=== PATIENT | female | born 1985 | race African-American/Black ===

== ENCOUNTER 2019-08-19 08:18 | Inpatient (IN) | payer BC, MEDICAID, SELFPAY ==
[2019-08-19] VITALS (11 sets, daily range): BP systolic 110–148; BP diastolic 46–93; PULSE 62–87; RESP 12–24; TEMP 36.3–36.9; O2SAT 96–100; BMI 37.0
--- NOTE | ~2019-08-19 | XR_ITS ---
EXAMINATION: XR cholangiogram surg 1st inj DATE: 08/22/2019 15:17 INDICATION: Intraoperative evaluation during laparoscopic cholecystectomy TECHNIQUE: Multiple fluoroscopic images of the right upper quadrant were obtained during intraoperati ve cholangiography. The amount of fluoroscopy time used during this procedure was 0.5 minutes. COMPARISON: None. FINDINGS: Cannulation of the cystic duct demonstrates filling of a normal appearing common bile duct which tapers smoothly distally with no intraluminal filling defects or stricture. Contrast extends i nto the duodenum and central intrahepatic biliary tree which also appears normal. IMPRESSION: 1. No filling defects or strictures within the common bile duct or contrast opacified central biliary tree. Reviewed, dictated and finalized at location A. DRIVER IMPRESSION: 1. No filling defects or strictures within the common bile duct or contrast opa cified central biliary tree.
--- NOTE | ~2019-08-19 | US_ITS ---
EXAMINATION: US right upper quadrant EXAM DATE: 08/19/2019 16:43 INDICATION: Back pain. Abnormal CT scan. TECHNIQUE: Multiple grayscale and Doppler images of the abdomen right upper quadrant were obtained (b y a technologist who performed the scan) and subsequently reviewed. There is no prior study for dax kraft. FINDINGS: The pancreatic head and body are normal in appearance. The pancreatic tail is not visualized. The l iver has normal echogenicity and contour. There are no focal liver lesions identified. There is no evidence of intrahepatic biliary duct dilation. Portal venous flow was seen in the hepatopedal, nor mal direction and has normal Doppler waveform. No right-sided hydronephrosis. Common bile duct measures 3 mm, which is normal. Gallbladder wall is either severely edematous up to 1.5 cm, where there is rather symmetric pericholecystic fluid (there was perihepatic and pericholecys tic fluid on CT scan same date). There are multiple layering gallstones. Gallbladder lumen is only mi ldly distended. Technologist reports patient demonstrated maximal tenderness overlying the gallbladde r. IMPRESSION: Cholelithiasis. Severely edematous gallbladder wall versus pericholecystic fluid. Sonogra phic Nagel's sign demonstrated. Appearance is suspicious for acute cholecystitis but given the other findings on CT scan difficult to exclude that gallbladder findings are reactive. Gallbladder lumen o nly demonstrating mild distention. Consider HIDA scan. Reviewed, dictated and finalized at location A. BIT BUILDER IMPRESSION: Cholelithiasis. Severely edematous gallbladder wall versus perichol ecystic fluid. Sonographic Nagel's sign demonstrated. Appearance is suspicious for acute cholecystitis but given the other findings on CT scan difficult to e xclude that gallbladder findings are reactive. Gallbladder lumen only demonstra ting mild distention. Consider HIDA scan.
--- NOTE | ~2019-08-19 | XR_ITS ---
EXAMINATION: XR chest 1V portable EXAM DATE: 08/19/2019 14:33 INDICATION: Infiltrate. Chest pain. TECHNIQUE: Frontal and lateral projections of the chest obtained and reviewed. Comparison is made to prior examination from 11/27/2014. Correlation was made with CT abdomen pelvis same date. FINDINGS: The small right lower lobe groundglass opacities are not appreciated by this modality, cou ld be edema or pneumonia. Heart is larger and more rounded in shape than on previous examination, mil d cardiomegaly of uncertain etiology. Given patient's young age, could be cardiomyopathy. No pericard ial effusion on the CT. There is no pneumothorax suspected. There are no pleural effusions. Mild thor acic dextroscoliosis. IMPRESSION: 1. Development of cardiomegaly. Possible CHF or cardiomyopathy. 2. Faint right basilar edema or pneumonia seen on CT not well appreciated on x-ray. Reviewed, dictated and finalized at location A. I[employer]AN [employer]ICE MARKET MANAGER IMPRESSION: 1. Development of cardiomegaly. Possible CHF or cardiomyopathy. 2. Faint right basilar edema or pneumonia seen on CT not well appreciated on x -ray.
--- NOTE | ~2019-08-19 | CT_ITS ---
EXAMINATION: CT abdomen pelvis w con EXAM DATE: 08/19/2019 14:05 INDICATION: Abdominal pain, back pain. Nausea and vomiting. TECHNIQUE: Spiral CT of the abdomen and pelvis was performed following intravenous injection of 100 m L Omnipaque 350. Axial, coronal and sagittal images were reviewed. The dose-length product (DLP) fo r this examination was 549.34 mGy-cm. The exposure was tailored according to patient size (auto mA e xposure control), and iterative reconstruction (ASIR) was used as additional dose reduction technique . Comparison is made to prior examination from 08/16/2016. FINDINGS: There is moderate generalized body wall and mesenteric fat stranding. Small to moderate mireya unt of perihepatic ascites, including fluid surrounding the gallbladder and extending into the peripo rtal region, periportal edema. Poorly calcified gallstones. Cholecystitis not excludable. Spleen, ad renal glands, pancreas are unremarkable. Portal and splenic veins are patent. Kidneys enhance symme trically. There is no hydronephrosis. Uterus is anteverted with IUD inside, but somewhat eccentric ally located within the myometrium. The bladder is unremarkable. There is no retroperitoneal or pel otis lymphadenopathy. Right lower quadrant 3 cm cystic region probably the right ovary. Appendix not positively identified. There are surgical changes from intact gastric bypass surgery. There is expected amount of colonic stool. No free intraperitoneal gas. The heart is normal in size. There are no pericardial or pl eural effusions. There is faint right lower lobe groundglass tree-in-bud airspace disease which coul d be ammonia. There are no osteoblastic or osteolytic lesions identified. IMPRESSION: 1. Right lower lobe groundglass nodular opacities suspicious for developing pneumonia. 2. Small to moderate amount of perihepatic, pericholecystic and periportal fluid. Generalized mesent antonio, body wall edema. 3. Cholelithiasis, can't determine gallbladder wall thickness. If acute cholecystitis clinical possi bility consider ultrasound. 4. IUD eccentrically located within myometrium, could be partly out of the endometrial cavity. Reviewed, dictated and finalized at location A. YARN SORTER IMPRESSION: 1. Right lower lobe groundglass nodular opacities suspicious for developing pn eumonia. 2. Small to moderate amount of perihepatic, pericholecystic and periportal flu id. Generalized mesenteric, body wall edema. 3. Cholelithiasis, can't determine gallbladder wall thickness. If acute cholec ystitis clinical possibility consider ultrasound. 4. IUD eccentrically located within myometrium, could be partly out of the end ometrial cavity.
--- NOTE | ~2019-08-19 | MR_ITS ---
EXAMINATION: MR MRCP wo/w con/w 3D wo ind DATE: 08/21/2019 12:21 INDICATION: Cholelithiasis with rising bilirubin TECHNIQUE: Magnetic resonance imaging (MRI) of the abdomen was performed without and with 15 mL Multi joel intravenous contrast. Sequences included coronal T2-weighted SS-FSE, coronal T2-weighted FS SS- FSE, coronal T2-weighted FS FIESTA, axial T2-weighted FS FIESTA, axial T2-weighted FIESTA, sagittal T 2-weighted SS-FSE, axial T1-weighted dual-echo FSPGR, axial T2-weighted SS-FSE, axial T1-weighted LAV A, axial T2-weighted STIR FSE. Thick-slab T2-weighted FRFSE-XL images were obtained for magnetic reso nance cholangiopancreatography (MRCP). Rotating maximum intensity projection 3-D reconstructions of t he volumetric data were created by the technologist. Postcontrast sequences included a time course of axial T1-weighted LAVA. COMPARISON: Ultrasound and CT dated 08/19/1990 FINDINGS: ABDOMEN MRI: Heart size is normal. No pericardial or pleural effusion. Magnetic susceptibility artifact associated with suture lines in the epigastric region and along a loop of small bowel in the anterior midabdome n likely related to prior gastric bypass procedure. Mild periportal edema in the otherwise normal-sammie earing liver. Numerous small low signal intensity gallstones layering in the dependent aspect of the gallbladder. Gallbladder is dilated to 4.8 x 4.5 cm with thickened edematous-appearing wall consisten t with acute cholecystitis. Spleen, pancreas, bilateral adrenal glands and kidneys are normal. No bow el obstruction. No pathologically enlarged abdominal lymphadenopathy. There is persistent soft tissu e edema throughout the body wall, mesentery and retroperitoneum. Trace amount of perihepatic ascites. Normal bone marrow signal throughout. ABDOMEN MRCP: There is some motion artifact on the MRCP images however the sagittal and coronal T2-weighted SSFSE i mages are excellent quality which aids and interpretation. No intrahepatic biliary ductal dilation. T he common bile duct is also normal in caliber measuring up to 3 mm in maximal diameter. No definitive intraluminal choledocholithiasis appreciated. No dilation of the main pancreatic duct. IMPRESSION: 1. Cholelithiasis and likely acute cholecystitis with dilation of the gallbladder and diffuse edemato us gallbladder wall thickening. 2. No evident choledocholithiasis with no intra or extrahepatic biliary ductal dilation. Reviewed, dictated and finalized at location A. FITTER FIRE SPRINKLER SYSTEMS IMPRESSION: 1. Cholelithiasis and likely acute cholecystitis with dilation of the gallbladd er and diffuse edematous gallbladder wall thickening. 2. No evident choledocholithiasis with no intra or extrahepatic biliary ductal dilation.
--- NOTE | 2019-08-19 08:49 | ECG_ITS ---
Measurements Intervals [place] Rate: 67 P: 23 OH: 236 QRS: 83 QRSD: 152 T: 45 QT: 434 QTc: 461 Interpretive Statements SINUS RHYTHM WITH FIRST DEGREE AV BLOCK RIGHT BUNDLE BRANCH BLOCK BASELINE ARTIFACT- I, II, III, AVR, AVL, AVF ABNORMAL ECG Electronically Signed On 08-19-2019 9:03:21 NETWORK CONTROL OPERATORS SUPERVISOR by Franklin Murrell D.O.
[2019-08-19 09:05] LABS: Basophils Percent Auto 0.5 % (0.2-1.2); Eosinophils Percent Auto 0.5 % (0-4.4); Hematocrit 33.4 % (37.0-47.0); Hemoglobin 10.5 g/dL (12.0-15.0); Immature Granulocyte Absolute 0.02 K/mm3 (0.00-0.031); Immature Granulocyte Percent A 0.3 % (0-0.5); Lymphocytes Absolute Auto 1.78 K/mm3 (0.9-3.2); Lymphocytes Percent Auto 27.4 % (18.3-44.2); Mean Corpuscular HGB Conc 31.4 g/dl (32-36); Mean Corpuscular Hemoglobin 26.5 pg (26-34); Mean Corpuscular Volume 84.3 fl (80-100); Monocytes Absolute Auto 0.5 K/mm3 (0.1-0.6); Monocytes Percent Auto 6.9 % (2.6-8.5); Neutrophils Absolute Auto 4.2 K/mm3 (1.3-6.7); Neutrophils Percent Auto 64.4 % (45.5-73.1); Platelet Count Result 335 k/mm3 (150-375); Red Blood Count 3.96 M/mm3 (4.2-5.4); Red Cell Distribution Width 18.2 % (11.5-14.5); White Blood Count 6.5 K/mm3 (4.5-10.0)
--- NOTE | 2019-08-19 12:12 | ED_ITS ---
I attest that this documentation has been prepared under the direction and in t he presence of Nikita Harris DO. Drake, Brett A., Scribe 08/19/19;12:13 HPI - General Adult General Chief complaint: Unspecified Stated complaint: Back Pain Time Seen by Provider: 08/19/19 12:04 Related Data Allergies Allergy/AdvReac Type Severity Reaction Status Date / Time YAZMIN Inhibitors Allergy Unknown Swelling, Verified 12/28/17 19:38 FACE AND THROAT Course Vital Signs Vital signs: Vital Signs Temperature 36.3 C L 08/19/19 08:34 Pulse Rate 63 08/19/19 08:34 Respiratory Rate 18 08/19/19 08:34 Blood Pressure 139/93 H 08/19/19 08:34 Pulse Oximetry 100 08/19/19 08:34 Temperature 36.5 C 08/19/19 11:36 Pulse Rate 74 08/19/19 11:36 Respiratory Rate 18 08/19/19 11:36 Blood Pressure 126/87 08/19/19 11:36 Pulse Oximetry 100 08/19/19 11:36 Medical Decision Making Vital Signs Vital Signs: Vital Signs Temperature 36.3 C L 08/19/19 08:34 Pulse Rate 63 08/19/19 08:34 Respiratory Rate 18 08/19/19 08:34 Blood Pressure 139/93 H 08/19/19 08:34 Pulse Oximetry 100 08/19/19 08:34 Temperature 36.5 C 08/19/19 11:36 Pulse Rate 74 08/19/19 11:36 Respiratory Rate 18 08/19/19 11:36 Blood Pressure 126/87 08/19/19 11:36 Pulse Oximetry 100 08/19/19 11:36 Lab Data Result diagrams: 08/19/19 08:42 08/19/19 08:42 Labs: Lab Results 08/19/19 08/19/19 Range/Units 08:42 08:42 WBC 6.5 (4.5-10.0) K/mm3 RBC 3.96 L (4.2-5.4) M/mm3 Hgb 10.5 L (12.0-15.0) g/dL Hct 33.4 L (37.0-47.0) % MCV 84.3 (80-100) fl MCH 26.5 (26-34) pg MCHC 31.4 L (32-36) g/dl RDW 18.2 H (11.5-14.5) % Plt Count 335 (150-375) k/mm3 MPV 9.0 (7.4-10.4) fl Immature Gran % (Auto) 0.3 (0-0.5) % Neut % (Auto) 64.4 (45.5-73.1) % Lymph % (Auto) 27.4 (18.3-44.2) % [place] % (Auto) 6.9 (2.6-8.5) % Eos % (Auto) 0.5 (0-4.4) % Baso % (Auto) 0.5 (0.2-1.2) % Lymph # (Auto) 1.78 (0.9-3.2) K/mm3 [place] # (Auto) 0.5 (0.1-0.6) K/mm3 Eos # (Auto) 0.0 (0-0.3) K/mm3 Baso # (Auto) 0.0 (0.0-0.1) K/mm3 Abs Immat Gran (auto) 0.02 (0.00-0.031) K/mm3 Absolute Neuts (auto) 4.2 (1.3-6.7) K/mm3 Absolute Nucleated RBC 0.0 (0.0-0.012) K/mm3 Nucleated RBC % 0.0 (0.0-0.2) % Sodium Pending Potassium Pending Chloride Pending Carbon Dioxide Pending BUN Pending Creatinine Pending Estim Creat Clear Calc Pending Estimated GFR Pending Glucose Pending Calcium Pending Total Bilirubin Pending AST Pending ALT Pending Alkaline Phosphatase Pending Total Protein Pe
--- NOTE | 2019-08-19 12:33 | PC.NURSE ---
Attempted to start PIV in L hand of pt. Able to gain access and draw blood without issue. When attempting to advance catheter pt began to scream and state take it out . IV catheter removed. Pt requesting other RN attempt for PIV access at this time.
[2019-08-19 12:42] LABS: Add Urine Microscopic? YES; Appearance Urine Clear (Clear); Bacteria Urine Trace /hpf; Bilirubin Urine 2+ (Negative); Blood Urine Negative (Negative); Color Urine Amber (Yellow); Glucose Urine UA Negative (Negative); Ketones Urine Trace mg/dL (Negative); Leukocyte Esterase Ur Negative LEU/UL (Negative); Mucus Urine Moderate /lpf; Nitrate Urine Negative (Negative); Protein Urine 2+ mg/dL (Negative); RBC Urine 0-2 /hpf (0-2); Squamous Epithelial Cell Urine Few /hpf (Few)
[2019-08-19 12:49] LABS: Specific Grav Ur 1.035 (1.001-1.035)
[2019-08-19 12:57] LABS: Alanine Aminotransferase 363 U/L (4-35); Albumin Level 4.1 g/dL (3.5-5.1); Alkaline Phosphatase 121 U/L (38-126); Bilirubin,Total 2.2 mg/dL (0.2-1.3); Blood Urea Nitrogen 14 mg/dL (7-17); Carbon Dioxide 24 mmol/L (22-30); Chloride 100 mmol/L (98-107); Estimated CRCL calculation 146 ml/min; Estimated Glomerular Filt Rate > 60; Glucose 145 mg/dL (65-105); Lipase 42 U/L (23-300); Potassium 3.7 mmol/L (3.4-5.0); Sodium 135 mmol/L (137-145)
[2019-08-19 13:03] LABS: Aspartate Amino Transferase 890 U/L (14-36)
--- NOTE | 2019-08-19 13:45 | ED.ABDPAIN ---
HPI - Abdominal Pain General Chief Complaint: Unspecified Stated Complaint: Back Pain Time Seen by Provider: 08/19/19 12:04 Source: patient and RN notes reviewed Mode of arrival: ambulatory Limitations: no limitations History of Present Illness HPI narrative: Pt is a 33 y/o female with a Hx of gastric bypass, who presents to the ED with c/o LUQ pain starting around 4 AM this morning. According to the nurse, the pt's pain radiates into her back. She notes that she has had nausea and vomiting since her pain began. Pt also reports chest pain, but denies any diarrhea, fever, or chills. She notes that she hasn't taken any pain medications for her symptoms. Pt denies any chance of being . MD elicited complaint: abdominal pain Pertinent past history: other (gastric bypass) Onset (ago): hour(s) (8) Location: LUQ Radiation: back Associated symptoms: nausea, vomiting and other (chest pain) Related Data Allergies Allergy/AdvReac Type Severity Reaction Status Date / Time YAZMIN Inhibitors Allergy Unknown Swelling, Verified 12/28/17 19:38 FACE AND THROAT Review of Systems Review of Systems: All systems reviewed & are unremarkable except as noted in HPI and below Constitutional: Constitutional: Denies chills and Denies fever(s) Cardiovascular: Cardiovascular: Reports chest pain Gastrointestinal: Gastrointestinal: Reports abdominal pain (LUQ pain radiating into back), Denies diarrhea, Reports nausea and Reports vomiting PMFSH Past Medical History Medical History (Updated 08/19/19 @ 18:34 by Nikita Harris DO) Acute renal failure resolved Asthma CHF (congestive heart failure) Peptic ulcer Sleep apnea uses CPAP Surgical History Surgical History (Updated 08/19/19 @ 13:55 by Oniel Frederick) Hx of section Hx of gastric bypass Hx of tonsillectomy Social History Social History (Updated 08/19/19 @ 13:55 by Oniel Frederick) Smoking status: Never smoker Gender identity (if verbalized by the patient): Female Comments PCP is CECILY Sheppard. Exam Narrative: Exam Narrative: APPEARANCE: No acute distress, nontoxic, resting in bed HEENT: Normocephalic, atraumatic, OMM RESPIRATORY: No respiratory distress, clear to auscultation bilaterally with no rhonchi wheezing or rales CARDIOVASCULAR: RRR s murmur ABDOMINAL: Soft, nondistended, tender palpation epigastric, right upper quadrant left upper quadrant, no tenderness in right lower quadrant left lower quadrant, no rebound or guarding MUSCULOSKELETAl: Moves all extremities. No clubbing, cyanosis or edema. NEURO: Awake and alert. Following commands, speech normal, no focal deficits SKIN:: Warm, dry. Normal Color PSYCHIATRIC: Normal affect/mood Course Course Emergency Course: Discussed with patient and family results of workup and diagnosis. Discussed need for admission. Patient and family understand and agree to current treatment plan Consultations Consultation #1: Discussed case with PA to [facility]. Accepts admission. Date: 08/19/19 Time: 15:49 Consultation #2: Discussed case with General Surgeon, Dr. Parikh. Agrees with consult. Date: 08/19/19 Time: 18:20 Vital Signs Vital signs: Vital Signs Temperature 97.4 F L 08/19/19 08:34 Pulse Rate 63 08/19/19 08:34 Respiratory Rate 18 08/19/19 08:34 Blood Pressure 139/93 H 08/19/19 08:34 Pulse Oximetry 100 08/19/19 08:34 Temperature 98.0 F 08/19/19 12:12 Pulse Rate 62 08/19/19 14:37 Respiratory Rate 22 H 08/19/19 12:16 Blood Pressure 110/46 L 08/19/19 17:49 Pulse Oximetry 100 08/19/19 17:49 MDM - Abdominal Pain Lab Data Result diagrams: 08/19/19 08:42 08/19/19 12:30 Labs: Lab Results 08/19/19 08/19/19 08/19/19 Range/Units 08:42 12:29 12:30 WBC 6.5 (4.5-10.0) K/mm3 RBC 3.96 L (4.2-5.4) M/mm3 Hgb 10.5 L (12.0-15.0) g/dL Hct 33.4 L (37.0-47.0) % MCV 84.3 (80-100) fl MCH 26.5 (
[2019-08-19] MEDS: KETOROLAC 30 MG/ML VIAL (*BKC) IV PUSH (14:11)
[2019-08-19] MEDS: ONDANSETRON INJ 4 MG/2 ML VIAL IV PUSH ×2 (14:11→20:24)
[2019-08-19] MEDS: LACTATED RINGERS 1,000 ML 999 ML IV CONT (14:11)
[2019-08-19 15:09] LABS: NT Pro B Type Natriuretic Pept 203 PG/ML (5-100); Troponin I < 0.012 ng/mL (0.000-0.034)
--- NOTE | 2019-08-19 18:41 | ADMGEN ---
This patient, Shirlene Ahn, was admitted to Medical Room 348-. Patient/family oriented to hospital policies and general routines including ID bracelet, bed and alarms, visiting hours, pain management, procedures, bathroom and other care routines, personal items, smoking policy, room service/diet, and visiting hours. Valuables list has been completed. Information on how to activate the Rapid Response Team has been discussed. Patient/Family are encouraged to report perceived risks to care and to ask questions if they do not understand what they are told or what they should do.
[2019-08-19] MEDS: SODIUM CHLORIDE 0.9% IV 1,000 ML 100 ML IV CONT (20:24)
[2019-08-19] MEDS: MORPHINE SULFATE 4 MG/ML INJ IV PUSH (20:26)
--- NOTE | 2019-08-19 22:01 | PM.CNGS ---
Assessment and Plan Assessment and plan (1) Cholelithiasis and cholecystitis with obstruction: Onset Date: ~07/2019 Code(s): K80.19 - Calculus of gallbladder with other cholecystitis with obstruction Status: Acute Assessment and Plan: At this time I would recommend repeat labs in the morning. If her bilirubin and alkaline phosphatase are further elevated would consider MRCP as the next test to be sure that there is not a common bile duct stone along with the known cholelithiasis. If these are improved consider HIDA scan to rule out acute cholecystitis. If her gallbladder functions she should go home on antibiotics and have an elective gallbladder surgery. If she has no gallbladder fill on the HIDA scan I would consider more urgent laparoscopic cholecystectomy with intraoperative cholangiogram. Patient may be a difficult one to have an ERCP as she has had gastric bypass in the past. Will need to define whether or not she had a gastric sleeve done which would allow in ERCP more easy or if she has actually had a Jose-en-Y gastric bypass which would make it much more difficult. History of Present Illness Consult details Consult date: 08/20/19 Reason for consult: gallstones Requesting physician: Anna Lane DO Narrative: Patient is a 33-year-old black female who previously has a gastric bypass in 2016. She presented to the emergency room this evening with complaints of abdominal pain. Further workup revealed apparent gallstones. She also had elevated liver function tests including a bilirubin of 2.2 alkaline phosphatase 121 AST and ALT also significantly elevated. Serum lipase was normal so no apparent pancreatitis. Pt has a Hx of gastric bypass done at [place] in 2016. And now presented to the ED with c/o LUQ pain starting around 4 AM this morning. According to the nurse, the pt's pain radiates into her back. She notes that she has had nausea and vomiting since her pain began. Pt also reports chest pain, but denies any diarrhea, fever, or chills. She notes that she hasn't taken any pain medications for her symptoms. Pt denies any chance of being Review of Systems Constitutional: Constitutional: Reports as per HPI and Denies headache(s) Eyes: Eyes: Denies loss of vision and Denies eye pain ENT: Reports hearing normal, Denies change in voice, Denies dizziness and Denies headache(s) Cardiovascular: Cardiovascular: Denies chest pain and Denies dyspnea Respiratory: Respiratory: Denies dyspnea, Denies wheezing and Reports other ( apparent history of diagnosis of sleep apnea) Gastrointestinal: Gastrointestinal: Reports as per HPI, Reports abdominal pain and Reports other (History of gastric bypass at [facility] by Dr. Allen 2015) Musculoskeletal: Musculoskeletal: Denies back pain and Denies arthralgias Neurologic: Reports Normal hearing present, Denies dizziness, Denies headache(s), Denies loss of vision and Denies memory loss Psychiatric: Psychiatric: Denies memory loss and Denies panic attacks Endocrine: Endocrine: Reports no additional endocrine complaints Hematologic/Lymphatic: Hematologic/Lymphatic: Reports no additional hematologic/lymphatic complaints Allergic/Immunologic: Allergic/Immunologic: Denies wheezing [facility] Past Medical History Medical History (Updated 08/20/19 @ 14:07 by Kelechi Guajardo MD) Acute renal failure resolved Asthma In childhood Elevated liver enzymes Peptic ulcer Right-sided congestive heart failure Echocardiogram August 2017: Mild concentric left ventricular hypertrophy, hyper trabeculation of myocardium, normal left global ventricular systolic function normal left ventricular diastolic function EF 55-60% hypokinetic basal inferior segment, mild enlargement left atrium, then hyper mobile atrial septum with [id number] shunt by color Doppler color flow consistent with PFO versus ASD, mild mitral regurg, mild tricuspid regurg, mild pulmonic regurg, tri
[2019-08-20 05:20] VITALS: BP 99/67; PULSE 63; RESP 14; TEMP 36.9; O2SAT 100
[2019-08-20] MEDS: SODIUM CHLORIDE 0.9% IV 1,000 ML 100 ML IV CONT ×2 (06:42→17:26)
[2019-08-20 06:46] VITALS: BP 122/71
[2019-08-20] MEDS: MORPHINE SULFATE 4 MG/ML INJ IV PUSH ×3 (06:48→20:07)
[2019-08-20 07:43] LABS: Lactic Acid 0.9 mmol/L (0.7-2.1)
[2019-08-20 07:44] LABS: Alanine Aminotransferase 334 U/L (4-35); Alkaline Phosphatase 91 U/L (38-126); Aspartate Amino Transferase 335 U/L (14-36); Bilirubin,Total 4.4 mg/dL (0.2-1.3); Blood Urea Nitrogen 10 mg/dL (7-17); Carbon Dioxide 23 mmol/L (22-30); Chloride 102 mmol/L (98-107); Estimated CRCL calculation 94 ml/min; Estimated Glomerular Filt Rate > 60; Glucose 89 mg/dL (65-105); Potassium 3.8 mmol/L (3.4-5.0); Sodium 133 mmol/L (137-145)
[2019-08-20 07:45] LABS: Lipase 12 U/L (23-300); Magnesium 1.6 mg/dL (1.6-2.3)
[2019-08-20 08:10] LABS: Basophils Absolute Auto 0.1 K/mm3 (0.0-0.1); Basophils Percent Auto 0.3 % (0.2-1.2); Eosinophils Percent Auto 0.2 % (0-4.4); Hematocrit 32.8 % (37.0-47.0); Hemoglobin 10.2 g/dL (12.0-15.0); Immature Granulocyte Percent A 0.6 % (0-0.5); Lymphocytes Absolute Auto 0.84 K/mm3 (0.9-3.2); Lymphocytes Percent Auto 4.7 % (18.3-44.2); Mean Corpuscular HGB Conc 31.1 g/dl (32-36); Mean Corpuscular Volume 83.7 fl (80-100); Mean Platelet Volume 9.1 fl (7.4-10.4); Monocytes Absolute Auto 0.7 K/mm3 (0.1-0.6); Monocytes Percent Auto 3.8 % (2.6-8.5); Neutrophils Absolute Auto 16.1 K/mm3 (1.3-6.7); Neutrophils Percent Auto 90.4 % (45.5-73.1); Platelet Count Result 280 k/mm3 (150-375); Red Blood Count 3.92 M/mm3 (4.2-5.4); Red Cell Distribution Width 17.9 % (11.5-14.5); White Blood Count 17.8 K/mm3 (4.5-10.0)
[2019-08-20 09:11] LABS: Platelet Estimate Adequate (Adequate); Target Cells 1+ (NORMAL)
[2019-08-20] MEDS: SERTRALINE HCL 50 MG TABLET PO (09:16)
--- NOTE | 2019-08-20 09:32 | PM.IMHP ---
H&P: [facility] History of Present Illness Chief complaint: cholecystitis cardiomegaly elevated lfts Narrative: Shirlene Ahn is a 33 year old female with a past medical history of right-sided heart failure thought to be due to untreated obstructive sleep apnea, morbid obesity significantly improved after gastric bypass surgery in 2016, and iron deficiency anemia who presents to the ER with abdominal, back and chest pain. 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 She began having low back pain that then radiated around to the anterior lower abdomen. She thought she may have some gas so she took some Gas-X instead of going away the pain then localized up into her epigastric and right upper quadrant region. The pain was a 10/10 at its worst a 9/10 when she arrived to the ER. The pain was so bad that she could not find a comfortable position. She even got desperate enough to lay in the waiting room floor in the ER. The patient reported that the pain in the right upper quadrant would radiate to her back. It she did have some nausea and vomiting after the onset of the pain. She denies any hematemesis or coffee-ground emesis. She has not had any diarrhea or changes in bowel habits. However she does not take her bariatric multivitamin/iron supplement as it causes constipation. She denies any fevers or chills. She reports that the pain is currently better but is now a 6/10 in intensity. She has a positive Nagel sign. Back in 2009 the patient had respiratory failure following the delivery of her child. His her hospital stay was complicated by intubation and acute renal failure. At the time of that hospitalization she had she had an echocardiogram that demonstrated a right ventricle that was moderately to severely dilated with moderate systolic dysfunction. Repeat echocardiogram August 2017 demonstrated mild left ventricular hypertrophy, hyper trabeculation of the myocardium and normal left ventricular systolic dysfunction normal EF and a hypermobile atrial septum with [id number]-uf-[id number] shunt with color flow consistent with PFO versus ASD. She reports that she was taken off of her diuretics sometime ago. She does not have dyspnea on exertion chest pain or shortness of breath with activity and she is active in her job. She has had a 265 lb weight loss since she had her gastric bypass. Review of Systems Review of Systems: Narrative: Except as documented in the HPI, all other systems were reviewed and are negative. [facility] Past Medical History Medical History (Updated 08/20/19 @ 09:[address] DO) Acute renal failure resolved Asthma In childhood Peptic ulcer Right-sided congestive heart failure Echocardiogram August 2017: Mild concentric left ventricular hypertrophy, hyper trabeculation of myocardium, normal left global ventricular systolic function normal left ventricular diastolic function EF 55-60% hypokinetic basal inferior segment, mild enlargement left atrium, then hyper mobile atrial septum with [id number]-[id number] shunt by color Doppler color flow consistent with PFO versus ASD, mild mitral regurg, mild tricuspid regurg, mild pulmonic regurg, trivial pericardial infusion Prior echo 2009 demonstrated right ventricle that was moderately to severely dilated with moderate systolic dysfunction prior to sleep apnea diagnosed Sleep apnea uses CPAP Surgical History Surgical History (Updated 08/20/19 @ 09:[address] DO) History of dilation and curettage February 2017 due to missed Hx of section April 17, 2010 Hx of gastric bypass [facility] 2015. Her pre up weight was 467 lb. Hx of tonsillectomy Family History Family History (Updated 08/19/19 @ 20:39 by Marla Driscoll RN) Sibling Acute myocardial infarction History of blood clots Sibling Diabetes mellitus Father Diabetes mellitus Hypertension Renal failure Mother Hypertension Social History Soci
[2019-08-20 13:56] VITALS: BP 128/72; PULSE 84; RESP 18; TEMP 36.9; O2SAT 100
--- NOTE | 2019-08-20 14:01 | WPDGICN ---
Assessment and Plan Assessment and plan (1) Cholelithiasis and cholecystitis with obstruction: Onset Date: ~07/2019 Qualifiers: Cholecystitis acuity: acute Cholelithiasis location: gallbladder Qualified Code(s): K80.01 - Calculus of gallbladder with acute cholecystitis with obstruction Code(s): K80.19 - Calculus of gallbladder with other cholecystitis with obstruction Status: Acute Assessment and Plan: patient has cholecystitis, will get MRCP to assess if also has stone in bile duct but the main problem if she indeed has choledocholithiasis then will need to be transferred to another facility- we won't be able to proceed with standard ERCP, she will need another technique (enteroscopic-assisted, laparoscopic assisted, etc) only available in [facility]. Continue with iv abx and supportive care, if no stones in bile duct then will need cholecystectomy (surgery on board) (2) Right lower lobe consolidation: Code(s): J18.1 - Lobar pneumonia, unspecified organism Status: Acute Assessment and Plan: CT scan also found consolidation in lung, on iv abx (3) CHF (congestive heart failure): Qualifiers: Heart failure type: right-sided Heart failure chronicity: chronic Qualified Code(s): I50.812 - Chronic right heart failure Code(s): I50.9 - Heart failure, unspecified Status: Acute (4) Elevated liver enzymes: Code(s): R74.8 - Abnormal levels of other serum enzymes Status: Acute (5) Gastric bypass status for obesity: Code(s): Z98.84 - Bariatric surgery status Status: Acute GI Consult Note Consult date/time: 08/20/19 14:01 reason of consult: acute cholecystitis HPI: Shirlene Ahn is a 33 year old female AAF with right-sided heart failure, morbid obesity resolved after gastric bypass surgery in 2014 at [facility] (lost about 250lb) here with new onset of severe pain in upper abdomen. Initially pain was in low back but radiated around to the anterior lower abdomen then localized in epigastric and right upper quadrant region. She finally came to ER because severe pain, also had nausea and vomiting after the onset of the pain. CT scan and ultrasound revealed acute cholecystitis, also had elevated bili 4, transaminases 300's, leukocytosis and started on zosyn, now she is more comfortable. She drinks 1-2 times a week when she goes out and sometimes gets drunk. Around See had similar pain but only mild and self-limited. Review of Systems Constitutional: Constitutional: Denies headache(s) and Denies weakness Eyes: Eyes: Denies blurry vision ENT: Reports hearing normal, Denies headache(s) and Denies neck pain Cardiovascular: Cardiovascular: Denies chest pain and Denies dyspnea Respiratory: Respiratory: Denies dyspnea Gastrointestinal: Gastrointestinal: Reports abdominal pain and Reports nausea Genitourinary: Genitourinary: Denies dysuria Musculoskeletal: Musculoskeletal: Denies neck pain Integumentary/Breasts: Skin/Breast: Denies dry skin Neurologic: Reports Normal hearing present, Denies headache(s) and Denies weakness Psychiatric: Psychiatric: Denies anxiety Endocrine: Endocrine: Denies change in body appearance Hematologic/Lymphatic: Hematologic/Lymphatic: Denies easy bleeding Allergic/Immunologic: Allergic/Immunologic: Denies urticaria PMFSH Past Medical History Medical History (Updated 08/20/19 @ 14:07 by Kelechi Guajardo MD) Acute renal failure resolved Asthma In childhood Elevated liver enzymes Peptic ulcer Right-sided congestive heart failure Echocardiogram August 2017: Mild concentric left ventricular hypertrophy, hyper trabeculation of myocardium, normal left global ventricular systolic function normal left ventricular diastolic function EF 55-60% hypokinetic basal inferior segment, mild enlargement left atrium, then hyper mobile atrial septum with rfqi-[id number]-puvso shunt by color Doppler color
--- NOTE | 2019-08-20 15:46 | PM.IMPN ---
Progress Note: A&P Assessment and Plan (1) Cholelithiasis and cholecystitis with obstruction: Onset Date: ~07/2019 Qualifiers: Cholelithiasis location: gallbladder Cholecystitis acuity: acute Qualified Code(s): K80.01 - Calculus of gallbladder with acute cholecystitis with obstruction Code(s): K80.19 - Calculus of gallbladder with other cholecystitis with obstruction Status: Acute Assessment and Plan: The patient has been evaluated by General surgery. Pt liver function and kenny was high on admission. CT scan and ultrasound revealed acute cholecystitis,Pt seen by surgery and GI will benefit from MRCP and ERCP. pt is currently npo with iv morphine, iv fluids and iv zosyn . (2) Right lower lobe consolidation: Code(s): J18.1 - Lobar pneumonia, unspecified organism Status: Acute Assessment and Plan: X-ray finding could be due to patient's adjacent acute cholecystitis. Pt does not complain of cough fever or wheezes. Many related to abdominal pain (3) CHF (congestive heart failure): Qualifiers: Heart failure type: right-sided Heart failure chronicity: chronic Qualified Code(s): I50.812 - Chronic right heart failure Code(s): I50.9 - Heart failure, unspecified Status: Acute Assessment and Plan: Pt had echocardiogram that demonstrated a right ventricle that was moderately to severely dilated with moderate systolic dysfunction. Repeat echocardiogram August 2017 demonstrated mild left ventricular hypertrophy, hyper trabeculation of the myocardium and normal left ventricular systolic dysfunction normal EF and a hypermobile atrial septum with [id number] shunt with color flow consistent with PFO versus ASD. (4) IUD migration: Qualifiers: Encounter type: initial encounter Qualified Code(s): T83.32XA - Displacement of intrauterine contraceptive device, initial encounter Code(s): T83.32XA - Displacement of intrauterine contraceptive device, initial encounter Status: Acute Assessment and Plan: CT mentions that IUD is eccentrically located within the myometrium and may be partially out of the endometrial cavity. Follow with OB/ forgeman helper on discharge Subjective Date/time seen: 08/20/19 15:46 Jimy is a 33 year old female with a past medical history of right-sided heart failure thought to be due to untreated obstructive sleep apnea, morbid obesity significantly improved after gastric bypass surgery in 2016, and iron deficiency anemia who presents to the ER with abdominal, back and chest pain. Pt complains of ongoing abdominal discomfort, also admitted with right sided pneumonia, history of heart failure and gastric bypass. Pt liver function and kenny was high on admission. CT scan and ultrasound revealed acute cholecystitis,Pt seen by surgery and GI will benefit from MRCP and ERCP. Review of Systems Review of Systems: All systems reviewed & are unremarkable except as noted in HPI and below Cardiovascular: Cardiovascular: Denies chest pain at rest, Denies chest pain with activity, Denies dyspnea and Denies dyspnea on exertion Respiratory: Respiratory: Denies chest congestion and Denies cough Gastrointestinal: Gastrointestinal: Reports abdominal pain, Denies diarrhea and Denies loose stools Exam Narrative: Exam Narrative: General: Younger female in mild andominal pain HEENT: Mucous membranes are tacky, Neck: No JVD, no gross lymphadenopathy, trachea midline Respiratory: Clear to auscultation bilaterally Cardiovascular: Regular rate, normal S1-S2, 2+ bilateral radial pedal pulses Gastrointestinal: Positive Nagel sign Skin:Many tattoos Extremities: No clubbing cyanosis or edema, moves all extremities equally Neurological: Alert and oriented, speech is clear, no facial asymmetry Psychiatric: Appropriate mood and affect, pleasant and cooperative Objective Data Vital Signs Vital Signs: Vital Signs - 24 hr 08/19/19 17:49
[2019-08-20 22:00] VITALS: BP 116/66; PULSE 69; RESP 15; TEMP 36.3; O2SAT 100
--- NOTE | 2019-08-20 23:04 | PM.PNGS ---
Progress Note: A&P Assessment and Plan (1) Cholelithiasis and cholecystitis with obstruction: Onset Date: ~07/2019 Qualifiers: Cholelithiasis location: gallbladder Cholecystitis acuity: acute Qualified Code(s): K80.01 - Calculus of gallbladder with acute cholecystitis with obstruction Code(s): K80.19 - Calculus of gallbladder with other cholecystitis with obstruction Status: Acute Assessment and Plan: Await MRCP result. If from her MRCP shows common duct stone patient will need to transfer to [place] please combination of surgical and GI team will need to address problem. If MRCP shows no stone in the common duct patient could consider having laparoscopic cholecystectomy but if improved on antibiotics could possibly go home on antibiotics and have this electively at a later time. (2) Elevated liver enzymes: Code(s): R74.8 - Abnormal levels of other serum enzymes Status: Acute Assessment and Plan: Bilirubin went higher so I suspect common bile duct stone, however will need to await MRCP results. Subjective Subjective Date/Time Seen: 08/20/19 19:04 patient again with the lights out sleeping when I entered the room. She awoke easily however. She states that after moving around she did have some right upper quadrant pain but still it is better than when she presented to the ED. Patient reports: feels better Interval history: As remain NPO. Has been seen by GI and there is agreement that if MRCP shows a common duct stone she will need to be transferred to a tertiary care center. She stated to me that she wishes to go to [place] of possible should that be necessary. Review of Systems Constitutional: Constitutional: Reports no additional constitutional complaints ENT: Reports other (Mucous Membranes moist.) Cardiovascular: Cardiovascular: Denies dyspnea Respiratory: Respiratory: Denies pain on inspiration and Denies dyspnea Genitourinary: Comments: Reports no specific nausea. She is very hungry. Musculoskeletal: Musculoskeletal: Reports other (No calf swelling or edema) Integumentary/Breasts: Skin/Breast: Reports system reviewed and no additional complaints, except as docu Exam Const: General: cooperative, no acute distress, alert and awake Orientation/consciousness: oriented x3 HENMT: Mouth: Yes moist mucous membranes Neck: Neck: normal visual inspection Chest: Chest palpation & inspection: normal inspection of the chest Resp: Effort & Inspection: normal respiratory effort Auscultation: clear to auscultation bilaterally Cardio: Jugular venous distension: no JVD Rate: regular rate Rhythm: regular rhythm GI: Rectal Exam: deferred Other: Mild tenderness in right upper quadrant. No other changes. Neuro: General: oriented x3 and moves all extremities Speech: normal speech Extrem: General: normal exam except as noted Psych: Mental Status: mental status grossly normal Speech and movement: speech and movement normal Affect: normal affect Thought content: Yes normal Objective Data Vital Signs Vital Signs: Vital Signs - 24 hr 08/20/19 05:20 08/20/19 06:46 08/20/19 13:56 Temperature 36.9 C 36.9 C Pulse Rate 63 84 Respiratory Rate 14 18 Blood Pressure 99/67 L 122/71 128/72 Pulse Oximetry 100 100 Intake/Output Intake/Output: Intake & Output 08/17/19 08/18/19 08/19/19 08/20/19 23:59 23:59 23:59 23:59 Intake Total 1100 2150 Output Total 1000 Balance 1100 1150 Meds/Results Medications: Active Medications Generic Name Dose Route Start Last Admin Trade Name Freq PRN Reason Stop Dose Admin Diphenhydramine HCl 25 mg 08/19/19 21:50 08/20/19 20:07 Benadryl Cap PO 25 mg HS YESSICA Administration Piperacillin/Tazobactam/Dextrose 3.375 gm in 50 mls @ 100 mls/hr 08/20/19 00:00 08/20/19 17:58 Zosyn 3.375 Gm/D5w 50ml Pm IVPB Infused Q6HR YESSICA Infusion Sodium Chloride 1,000 mls @ 100 mls/hr 08/19/19 16
[2019-08-21] MEDS: MORPHINE SULFATE 4 MG/ML INJ IV PUSH ×4 (00:03→20:12)
[2019-08-21 05:08] VITALS: BP 112/69; PULSE 57; RESP 16; TEMP 36.8; O2SAT 99
[2019-08-21] MEDS: SODIUM CHLORIDE 0.9% IV 1,000 ML 100 ML IV CONT ×2 (05:15→17:11)
--- NOTE | 2019-08-21 12:34 | PM.IMPN ---
Progress Note: A&P Assessment and Plan (1) Cholelithiasis and cholecystitis with obstruction: Onset Date: ~07/2019 Qualifiers: Cholelithiasis location: gallbladder Cholecystitis acuity: acute Qualified Code(s): K80.01 - Calculus of gallbladder with acute cholecystitis with obstruction Code(s): K80.19 - Calculus of gallbladder with other cholecystitis with obstruction Status: Acute Assessment and Plan: The patient has been evaluated by General surgery. Pt liver function and kenny was high on admission. CT scan and ultrasound revealed acute cholecystitis,Pt seen by surgery and GI will benefit from MRCP/? ERCP v surgery. pt is currently npo with iv morphine, iv fluids and iv zosyn. awaiting MRCP result (2) Right lower lobe consolidation: Code(s): J18.1 - Lobar pneumonia, unspecified organism Status: Acute Assessment and Plan: X-ray finding could be due to patient's adjacent acute cholecystitis. Pt does not complain of cough fever or wheezes. Many related to abdominal pain (3) CHF (congestive heart failure): Qualifiers: Heart failure type: right-sided Heart failure chronicity: chronic Qualified Code(s): I50.812 - Chronic right heart failure Code(s): I50.9 - Heart failure, unspecified Status: Acute Assessment and Plan: Pt had echocardiogram that demonstrated a right ventricle that was moderately to severely dilated with moderate systolic dysfunction. Repeat echocardiogram August 2017 demonstrated mild left ventricular hypertrophy, hyper trabeculation of the myocardium and normal left ventricular systolic dysfunction normal EF and a hypermobile atrial septum with [id number] shunt with color flow consistent with PFO versus ASD. (4) IUD migration: Qualifiers: Encounter type: initial encounter Qualified Code(s): T83.32XA - Displacement of intrauterine contraceptive device, initial encounter Code(s): T83.32XA - Displacement of intrauterine contraceptive device, initial encounter Status: Acute Assessment and Plan: CT mentions that IUD is eccentrically located within the myometrium and may be partially out of the endometrial cavity. Follow with OB/ plug making operator on discharge Subjective Date/time seen: 08/21/19 12:34 Jimy is a 33 year old female with a past medical history of right-sided heart failure thought to be due to untreated obstructive sleep apnea, morbid obesity significantly improved after gastric bypass surgery in 2015, and iron deficiency anemia who presents to the ER with abdominal, back and chest pain. Pt complains of ongoing abdominal discomfort, also admitted with right sided pneumonia, history of heart failure and gastric bypass. Pt liver function and kenny was high on admission. CT scan and ultrasound revealed acute cholecystitis,Pt seen by surgery and GI will benefit from MRCP ? ERCP v surgery. Awaiting MRCP today for more information on stone location. Pt having ongoing abdominal pains Review of Systems Review of Systems: All systems reviewed & are unremarkable except as noted in HPI and below Cardiovascular: Cardiovascular: Denies chest pain at rest, Denies chest pain with activity, Denies dyspnea and Denies dyspnea on exertion Respiratory: Respiratory: Denies chest congestion, Denies cough, Denies dyspnea and Denies dyspnea on exertion Gastrointestinal: Gastrointestinal: Reports abdominal pain, Denies diarrhea and Denies loose stools Exam Narrative: Exam Narrative: General: Younger female in mild andominal pain HEENT: Mucous membranes are tacky, Neck: No JVD, no gross lymphadenopathy, trachea midline Respiratory: Clear to auscultation bilaterally Cardiovascular: Regular rate, normal S1-S2, 2+ bilateral radial pedal pulses Gastrointestinal: Positive Nagel sign Skin:Many tattoos Extremities: No clubbing cyanosis or edema, moves all extremities equally Neurological: Alert and oriented, speech is clear,
[2019-08-21 14:00] VITALS: BP 138/73; PULSE 53; RESP 16; TEMP 37.1; O2SAT 100
--- NOTE | 2019-08-21 14:53 | WPDGIPROGNO ---
Progress Note: A&P Assessment and Plan (1) Cholelithiasis and cholecystitis with obstruction: Onset Date: ~07/2019 Qualifiers: Cholelithiasis location: gallbladder Cholecystitis acuity: acute Qualified Code(s): K80.01 - Calculus of gallbladder with acute cholecystitis with obstruction Code(s): K80.19 - Calculus of gallbladder with other cholecystitis with obstruction Status: Acute Assessment and Plan: MRCP showed Cholelithiasis and acute cholecystitis with dilation of the gallbladder and diffuse edematous gallbladder wall thickening. No evident choledocholithiasis with no intra or extrahepatic biliary ductal dilation therefore no need to do ERCP. Surgery to decide best timing for cholecystectomy. on iv antibiotic and supportive care. (2) Elevated liver enzymes: Code(s): R74.8 - Abnormal levels of other serum enzymes Status: Acute Assessment and Plan: monitor, due to above. (3) CHF (congestive heart failure): Qualifiers: Heart failure type: right-sided Heart failure chronicity: chronic Qualified Code(s): I50.812 - Chronic right heart failure Code(s): I50.9 - Heart failure, unspecified Status: Acute (4) Gastric bypass status for obesity: Code(s): Z98.84 - Bariatric surgery status Status: Acute Subjective Date/time seen: 08/21/19 14:53 Interval history: overall doing better, she is hungry, no much pain Review of Systems Constitutional: Constitutional: Denies headache(s) and Denies weakness Eyes: Eyes: Denies blurry vision ENT: Reports hearing normal, Denies headache(s) and Denies neck pain Cardiovascular: Cardiovascular: Denies chest pain and Denies dyspnea Respiratory: Respiratory: Denies dyspnea Gastrointestinal: Gastrointestinal: Denies nausea Genitourinary: Genitourinary: Denies dysuria Musculoskeletal: Musculoskeletal: Denies neck pain Integumentary/Breasts: Skin/Breast: Denies dry skin Neurologic: Reports Normal hearing present, Denies headache(s) and Denies weakness Psychiatric: Psychiatric: Denies anxiety Endocrine: Endocrine: Denies change in body appearance Hematologic/Lymphatic: Hematologic/Lymphatic: Denies easy bleeding Allergic/Immunologic: Allergic/Immunologic: Denies urticaria Exam Const: General: comfortable and no acute distress HENMT: General nose exam: nares normal Eyes: General: appearance normal, both eyes and all related structures Neck: Neck: no JVD Resp: Auscultation: clear to auscultation bilaterally Cardio: Rate: regular rate Rhythm: regular rhythm Heart sounds: murmur GI: GI Palp: Yes soft and No guarding Auscultation: normal bowel sounds Skin: General skin exam: normal color Neuro: General: gait normal Speech: normal speech Extrem: General: normal to inspection Psych: Mental Status: mental status grossly normal Objective Data Vital Signs Vital Signs: Vital Signs - 24 hr 08/20/19 22:00 08/21/19 05:08 08/21/19 14:00 Temperature 97.3 F L 98.2 F 98.7 F Pulse Rate 69 57 L 53 L Respiratory Rate 15 16 16 Blood Pressure 116/66 112/69 138/73 Pulse Oximetry 100 99 100 Intake/Output Intake/Output: Intake & Output 08/18/19 08/19/19 08/20/19 08/21/19 23:59 23:59 23:59 23:59 Intake Total 1100 2150 1100 Output Total 1000 400 Balance 1100 1150 700 Meds/Results Medications: Active Medications Generic Name Dose Route Start Last Admin Trade Name Freq PRN Reason Stop Dose Admin Diphenhydramine HCl 25 mg 08/19/19 21:50 08/20/19 20:07 Benadryl Cap PO 25 mg HS YESSICA Administration Piperacillin/Tazobactam/Dextrose 3.375 gm in 50 mls @ 100 mls/hr 08/20/19 00:00 08/21/19 12:46 Zosyn 3.375 Gm/D5w 50ml Pm IVPB 100 mls/hr Q6HR YESSICA Administration Sodium Chloride 1,000 mls @ 100 mls/hr 08/19/19 16:15 08/21/19 05:15 Normal Saline Iv IV CONT 100 mls/hr .Q10H YESSICA Administration Morphine Sulfate 4 mg 08/19/19 16:11 0
--- NOTE | 2019-08-21 21:12 | PM.PNGS ---
Progress Note: A&P Assessment and Plan (1) Cholelithiasis and cholecystitis with obstruction: Onset Date: ~07/2019 Qualifiers: Cholelithiasis location: gallbladder Cholecystitis acuity: acute Qualified Code(s): K80.01 - Calculus of gallbladder with acute cholecystitis with obstruction Code(s): K80.19 - Calculus of gallbladder with other cholecystitis with obstruction Status: Acute Assessment and Plan: Have discussed the risks, benefits, and possible complications of a laparoscopic possible open cholecystectomy. These include bleeding, infection, possible injury to surrounding organs, possible need for open procedure and possible need for a difficult ERCP following the procedure if any stones or in the common duct that are not able to be removed. MRCP shows no stones in the common duct so proceed with laparoscopic approach for removal of the gallbladder to take way source. Perhaps there is some pressure from somewhat inflamed gallbladder on the common duct leading to the elevated bilirubin. (2) CHF (congestive heart failure): Qualifiers: Heart failure type: right-sided Heart failure chronicity: chronic Qualified Code(s): I50.812 - Chronic right heart failure Code(s): I50.9 - Heart failure, unspecified Status: Acute Assessment and Plan: Medical clearance from the medical service present. Patient had a 67% ejection fraction on previous (3) Elevated liver enzymes: Onset Date: ~07/2019 Code(s): R74.8 - Abnormal levels of other serum enzymes Status: Acute Assessment and Plan: Will plan to proceed with laparoscopic cholecystectomy and see if liver function tests improved following the procedure. Recheck labs in the morning. (4) Gastric bypass status for obesity: Code(s): Z98.84 - Bariatric surgery status Status: Acute Assessment and Plan: Discussed with patient that having had the gastric bypass the past may make it more difficult to perform her cholecystectomy laparoscopically. This makes her a little more but increased risk for an open procedure. Subjective Subjective Date/Time Seen: 08/21/19 17:12 Patient Kay in bed when I entered the room. Went over MRCP findings with her. She would like to proceed with laparoscopic cholecystectomy possible open. He is not having a lot of pain tonight. Antibiotics seemed to be working. Review of Systems Constitutional: Constitutional: Reports no additional constitutional complaints ENT: Reports other (Mucous Membranes moist.) Cardiovascular: Cardiovascular: Denies dyspnea Respiratory: Respiratory: Denies pain on inspiration and Denies dyspnea Gastrointestinal: Gastrointestinal: Reports abdominal pain, Denies melena, Denies bloating and Denies nausea Musculoskeletal: Musculoskeletal: Reports other (No calf swelling or edema) Integumentary/Breasts: Skin/Breast: Reports system reviewed and no additional complaints, except as docu Exam HENMT: Mouth: Yes moist mucous membranes Neck: Neck: no JVD Resp: Effort & Inspection: normal respiratory effort GI: Auscultation: normal bowel sounds Other: patient has multiple small trocar site scars on abdomen to which are the right midline in the upper abdomen. None by the umbilicus. Patient has moderate discomfort palpation in the right upper quadrant but no guarding. Objective Data Vital Signs Vital Signs: Vital Signs - 24 hr 08/20/19 22:00 08/21/19 05:08 08/21/19 14:00 Temperature 36.3 C L 36.8 C 37.1 C Pulse Rate 69 57 L 53 L Respiratory Rate 15 16 16 Blood Pressure 116/66 112/69 138/73 Pulse Oximetry 100 99 100 Intake/Output Intake/Output: Intake & Output 08/18/19 08/19/19 08/20/19 08/21/19 23:59 23:59 23:59 23:59 Intake Total 1100 2150 2680 Output Total 1000 750 Balance 1100 1150 1930 Meds/Results Medications: Active Medications Generic Name Dose Route Start Last Admin Trade Name
[2019-08-21 22:00] VITALS: BP 126/75; PULSE 51; RESP 16; TEMP 36.6; O2SAT 100
[2019-08-22] VITALS (12 sets, daily range): BP systolic 125–170; BP diastolic 76–105; PULSE 50–109; RESP 14–30; TEMP 36.3–37.2; O2SAT 98–100
[2019-08-22] MEDS: MORPHINE SULFATE 4 MG/ML INJ IV PUSH ×2 (05:46→12:21)
[2019-08-22] MEDS: SODIUM CHLORIDE 0.9% IV 1,000 ML 100 ML IV CONT (05:49)
[2019-08-22 06:01] LABS: Hematocrit 29.5 % (37.0-47.0); Hemoglobin 9.7 g/dL (12.0-15.0); Mean Corpuscular HGB Conc 32.9 g/dl (32-36); Mean Corpuscular Hemoglobin 26.3 pg (26-34); Mean Corpuscular Volume 79.9 fl (80-100); Platelet Count Result 237 k/mm3 (150-375); Red Blood Count 3.69 M/mm3 (4.2-5.4); Red Cell Distribution Width 17.9 % (11.5-14.5)
[2019-08-22 06:21] LABS: Alanine Aminotransferase 179 U/L (4-35); Albumin Level 2.9 g/dL (3.5-5.1); Alkaline Phosphatase 194 U/L (38-126); Aspartate Amino Transferase 110 U/L (14-36); Bilirubin,Total 4.1 mg/dL (0.2-1.3); Blood Urea Nitrogen 6 mg/dL (7-17); Carbon Dioxide 21 mmol/L (22-30); Chloride 101 mmol/L (98-107); Estimated CRCL calculation 144 ml/min; Estimated Glomerular Filt Rate > 60; Glucose 90 mg/dL (65-105); Lipase 58 U/L (23-300); Potassium 3.5 mmol/L (3.4-5.0); Sodium 130 mmol/L (137-145)
--- NOTE | 2019-08-22 07:12 | WPDHPUPDATE1 ---
History and Physical Update Update Date/Time: 08/22/19 07:12 History and Physical has been reviewed, including an updated exam of the patient. There are changes in the patient's condition. See the ensuing daily Progress notes. Pt had a MRCP yesterday showing no CBD stones. It aslo showed sings of cholithiasis and GB wall edema suggestive of Cholecystitis. Pt is improve on the current antibiotics wiht her WBC sownt to 10,000. Risks, benefits, and alternativesof a laparoscopic cholecystectomy, possible cholangiogram, and possible open cholecystectomy have been discussed and questions answered. Patient agrees to proceed with procedure.
[2019-08-22] MEDS: CHLORHEXIDINE GLUCONATE 4% SOL 120 ML BTL 1 APPLIC TOPICAL (12:10)
[2019-08-22] MEDS: LACTATED RINGERS 1,000 ML 30 ML IV CONT ×2 (13:20→16:05)
--- NOTE | 2019-08-22 13:44 | WPDANESEPPF ---
Anes - Initial Pre Proc Eval Procedure: Operation Date: 08/22/19 14:00 Proposed Procedures p Laparoscopic Cholecystectomy with Intraoperative Cholangiogram, Possible Open - Abelardo Parikh MD Date/Time: 08/22/19 13:44 Surgeon: Luis Bruce MD Pre Op Diagnosis: cholecystitis cardiomegaly elevated lfts Patient Data Age: 33 Gender: F Height: 5 ft 2 in Weight: 92 kg Last Vital Signs Temp 36.3 C L 08/22/19 05:55 Pulse 53 L 08/22/19 05:55 Resp 14 08/22/19 05:55 BP 140/76 08/22/19 05:55 Pulse Ox 100 08/22/19 05:55 Allergies Allergy/AdvReac Type Severity Reaction Status Date / Time YAZMIN Inhibitors Allergy Severe Swelling Verified 08/20/19 09:47 of Lip/Tongue/Throat Home Medications Medication Instructions Recorded Confirmed Type diphenhydramine HCl [Sleep Aid 25 mg PO HS 08/19/19 08/19/19 History (diphenhydramine)] sertraline 50 mg PO DAILY 08/19/19 08/19/19 History Laboratory Tests 08/22/19 08/22/19 08/22/19 05:43 05:43 05:43 WBC 5.0 K/mm3 K/mm3 (4.5-10.0) RBC 3.69 M/mm3 L M/mm3 (4.2-5.4) Hgb 9.7 g/dL L g/dL (12.0-15.0) Hct 29.5 % L % (37.0-47.0) MCV 79.9 fl L fl (80-100) MCH 26.3 pg pg (26-34) MCHC 32.9 g/dl g/dl (32-36) RDW 17.9 % H % (11.5-14.5) Plt Count 237 k/mm3 k/mm3 (150-375) MPV 9.0 fl fl (7.4-10.4) Sodium 130 mmol/L L mmol/L (137-145) Potassium 3.5 mmol/L mmol/L (3.4-5.0) Chloride 101 mmol/L mmol/L (98-107) Carbon Dioxide 21 mmol/L L mmol/L (22-30) BUN 6 mg/dL L mg/dL (7-17) Creatinine 0.50 mg/dL L mg/dL (0.7-1.0) Estim Creat Clear Calc 144 ml/min ml/min Estimated GFR > 60 (59 - ) Glucose 90 mg/dL mg/dL (65-105) Calcium 8.0 mg/dL L mg/dL (8.4-10.2) Total Bilirubin 4.1 mg/dL H mg/dL (0.2-1.3) AST 110 U/L H U/L (14-36) ALT 179 U/L H U/L (4-35) Alkaline Phosphatase 194 U/L H U/L (38-126) Total Protein 6.0 g/dL L g/dL (6.3-8.2) Albumin 2.9 g/dL L g/dL (3.5-5.1) Lipase 58 U/L U/L (23-300) Blood Type O Positive Antibody Screen Negative Patient hx anesthesia problems: none Family hx anesthesia problems: none PMFSH Past Medical History Medical History Acute renal failure resolved Asthma In childhood Elevated liver enzymes (~07/2019) Peptic ulcer Right-sided congestive heart failure Echocardiogram August 2017: Mild concentric left ventricular hypertrophy, hyper trabeculation of myocardium, normal left global ventricular systolic function normal left ventricular diastolic function EF 55-60% hypokinetic basal inferior segment, mild enlargement left atrium, then hyper mobile atrial septum with [id number] shunt by color Doppler color flow consistent with PFO versus ASD, mild mitral regurg, mild tricuspid regurg, mild pulmonic regurg, trivial pericardial infusion Prior echo 2009 demonstrated right ventricle that was moderately to severely dilated with moderate systolic dysfunction prior to sleep apnea diagnosed Sleep apnea uses CPAP Surgical History Surgical History Gastric bypass status for obesity History of dilation and curettage February 2017 due to missed Hx of section April 17, 2010 Hx of gastric bypass [facility] 2015. Her pre up weight was 467 lb. Hx of tonsillectomy Family History Family History Sibling Acute myocardial infarction History of blood clots Sibling Diabetes mellitus Father Diabetes mellitus Hypertension Renal failure Mother Hypertension Social History Social History (Revie
[2019-08-22] MEDS: BUPIVACAINE/EPINEPHRINE 0.5% 30 ML VIAL INFILTRATE (14:22)
--- NOTE | 2019-08-22 16:12 | P.OP_ITS ---
Procedure Note - Detailed Date of procedure: 08/22/19 Pre-op diagnosis: cholecystitis cardiomegaly elevated lfts Acute on chronic cholecystitis with cholelithiasis Post-op diagnosis: other (Right ovarian cyst) Procedure performed: Laparoscopic cholecystectomy with intraoperative cholangiogram. Description of procedure: Procedure Details: Patient was seen preoperatively in her hospital room and the risks, benefits and alternatives confirmed. Patient was taken to the operating room and general anesthesia was induced. A time out was then preformed with the surgery team confirming patient and site of surgery. The abdomen was prepped and draped in the usual sterile fashion. Incision was made just below the umbilicus. Two stay sutures of O- Vicryl were used to elevate the mid-line fascia beneath the umbilicus and a small incision was made under direct vision. The peritoneum was entered. The 12 mm Torres cannula was introduced under direct vision. First under low flow and then under high flow the abdomen was insufflated with carbon dioxide never exceeding a pressure of 14. Three 5 mm trocars were then introduced under direct vision. The following trocars were introduced under direct vision: a 5 mm in the epigastrium and two 5 mm trocars along the right costal margin. The gallbladder was huge and could barely be retracted up over the liver. The gall bladder was grasped and the cystic duct and artery were dissected free and clipped with an 5 mm endo-clip automobile body customizer. A small hole was made in the cystic duct with endoshears and a cholagio-cath introduced. A cholangiogram was obtained revealing free flow into the fairly long cystic duct, common bile duct, common hepatic, right and left hepatic ducts with free flow into the duodenum with no filling defects in the intra nor extrahepatic biliary tree and no dilation. The catheter was removed and the cystic duct was clipped with a 5 mm endoclip-automobile body customizer. The cystic duct was then transected. The cystic artery was also transected at this point. The gall bladder was removed using electrocautery and then removed using a large 10 mm grasper via the umbilical incision. The trocars were removed visualizing hemostasis and the remaining gas evacuated. The large trocar site at the umbilicus was closed with an 0 vicryl figure of 8 suture. The 2 stay sutures mentioned above on either side of the fascia were also tied together to help approximate this midline fascia. Further local anesthetic was placed into each incision for postop pain control. The skin incisions were closed with a subcuticular of 4-0 Monocryl. Surgical glue then was applied to all the incisions. Patient tolerated the procedure well was taken to the recovery room in good condition. Anesthesia: SHANAA Surgeon: Abelardo Parkih MD Industrial Automation Specialist: Shashi ALONSO, OR 1st assist Estimated blood loss (mL): 50 Drains: No Packing: No Pathology: yes (The gallbladder) Complications: No immediate complications Condition: stable Disposition: PACU Findings: There was a fairly long cystic duct on cholangiogram that paralleled the common duct and joint it fairly far distally. Small black flecks of stone material came out cystic duct when we did the opening to insert the cholangiogram catheter.
[2019-08-22] MEDS: ONDANSETRON INJ 4 MG/2 ML VIAL IV PUSH (16:20)
[2019-08-22] MEDS: hydrALAZINE HCL 20 MG/ML VIAL 10 MG IV PUSH ×2 (16:57→17:07)
--- NOTE | 2019-08-22 18:09 | PM.IMPN ---
Progress Note: A&P Assessment and Plan (1) Cholelithiasis and cholecystitis with obstruction: Onset Date: ~07/2019 Qualifiers: Cholelithiasis location: gallbladder Cholecystitis acuity: acute Qualified Code(s): K80.01 - Calculus of gallbladder with acute cholecystitis with obstruction Code(s): K80.19 - Calculus of gallbladder with other cholecystitis with obstruction Status: Acute Assessment and Plan: Pt is post op lap cholecystectomy today, complaining of abdominal pain,Bp slightly high continue to monitor ? pain related (2) Right lower lobe consolidation: Code(s): J18.1 - Lobar pneumonia, unspecified organism Status: Acute Assessment and Plan: pt is on iv zosyn (3) CHF (congestive heart failure): Qualifiers: Heart failure type: right-sided Heart failure chronicity: chronic Qualified Code(s): I50.812 - Chronic right heart failure Code(s): I50.9 - Heart failure, unspecified Status: Acute Assessment and Plan: Pt had echocardiogram that demonstrated a right ventricle that was moderately to severely dilated with moderate systolic dysfunction. Repeat echocardiogram August 2017 demonstrated mild left ventricular hypertrophy, hyper trabeculation of the myocardium and normal left ventricular systolic dysfunction normal EF and a hypermobile atrial septum with [id number] shunt with color flow consistent with PFO versus ASD. (4) IUD migration: Qualifiers: Encounter type: initial encounter Qualified Code(s): T83.32XA - Displacement of intrauterine contraceptive device, initial encounter Code(s): T83.32XA - Displacement of intrauterine contraceptive device, initial encounter Status: Acute Assessment and Plan: CT mentions that IUD is eccentrically located within the myometrium and may be partially out of the endometrial cavity. Follow with OB/ hat band attacher on discharge Subjective Date/time seen: 08/22/19 18:09 Interval history: Jimy is a 33 year old female with a past medical history of right-sided heart failure thought to be due to untreated obstructive sleep apnea, morbid obesity significantly improved after gastric bypass surgery in 2016, and iron deficiency anemia who presents to the ER with abdominal, back and chest pain. Pt complains of ongoing abdominal discomfort, also admitted with right sided pneumonia, history of heart failure and gastric bypass. Pt liver function and kenny was high on admission. CT scan and ultrasound revealed acute cholecystitis. Pt is seen just after recovery @6pm last night. Pt is post op lap cholecystectomy earlier today, complaining of abdominal pain, bp slightly high. Pt has no history of BP problems Review of Systems Review of Systems: All systems reviewed & are unremarkable except as noted in HPI and below Gastrointestinal: Gastrointestinal: Reports abdominal pain Exam Narrative: Exam Narrative: General: Younger female in severe abdominal pain HEENT: Mucous membranes are tacky, Neck: No JVD, no gross lymphadenopathy, trachea midline Respiratory: Clear to auscultation bilaterally Cardiovascular: Regular rate, normal S1-S2, 2+ bilateral radial pedal pulses Gastrointestinal: Sp lap charles Skin:Many tattoos Extremities: No clubbing cyanosis or edema, moves all extremities equally Neurological: Alert and oriented, speech is clear, no facial asymmetry Psychiatric: Appropriate mood and affect, pleasant and cooperative Objective Data Vital Signs Vital Signs: Vital Signs - 24 hr 08/21/19 22:00 08/22/19 05:55 08/22/19 13:10 Temperature 36.6 C 36.3 C L 37.2 C Pulse Rate 51 L 53 L 50 L Respiratory Rate 16 14 18 Blood Pressure 126/75 140/76 140/95 H Pulse Oximetry 100 100 100 08/22/19 16:05 08/22/19 16:15 08/22/19 16:30 Temperature 36.9 C Pulse Rate 78 69 81 Respiratory Rate 30 H 20 20 Blood Pressure 143/102 H 156/93 H 148/88 H Pulse Oximetry 100 100 100 08/22/19
[2019-08-22] MEDS: SENNA/DOCUSATE SODIUM TABLET 2 TAB PO (20:24)
[2019-08-23] MEDS: MORPHINE SULFATE 4 MG/ML INJ IV PUSH (01:41)
[2019-08-23 05:51] LABS: Hematocrit 29.4 % (37.0-47.0); Mean Corpuscular Hemoglobin 26.6 pg (26-34); Mean Corpuscular Volume 78.2 fl (80-100); Mean Platelet Volume 9.4 fl (7.4-10.4); Platelet Count Result 271 k/mm3 (150-375); Red Blood Count 3.76 M/mm3 (4.2-5.4); Red Cell Distribution Width 17.7 % (11.5-14.5); White Blood Count 10.3 K/mm3 (4.5-10.0)
[2019-08-23 06:16] LABS: Alanine Aminotransferase 165 U/L (4-35); Albumin Level 2.7 g/dL (3.5-5.1); Alkaline Phosphatase 222 U/L (38-126); Aspartate Amino Transferase 117 U/L (14-36); Bilirubin,Total 2.3 mg/dL (0.2-1.3); Blood Urea Nitrogen 6 mg/dL (7-17); Calcium 8.2 mg/dL (8.4-10.2); Carbon Dioxide 20 mmol/L (22-30); Chloride 102 mmol/L (98-107); Estimated CRCL calculation 144 ml/min; Estimated Glomerular Filt Rate > 60; Glucose 81 mg/dL (65-105); Potassium 3.6 mmol/L (3.4-5.0); Sodium 134 mmol/L (137-145)
[2019-08-23] MEDS: ENOXAPARIN 40 MG/0.4 ML SYRINGE SUB-Q (09:52)
--- NOTE | 2019-08-23 11:23 | WPDANESPN ---
Anes - Prog Note Post-Op Date/Time: 08/23/19 11:23 Cardiovascular status: normal Respiratory status: normal Airway patency: baseline Mental status: baseline Post-Op hydration status: normal Vital Signs: Last Vital Signs Temp 36.9 C 08/22/19 22:00 Pulse 109 H 08/22/19 22:00 Resp 16 08/22/19 22:00 BP 136/88 08/22/19 22:00 Pulse Ox 100 08/22/19 22:00 I/O: Intake & Output 08/22/19 08/23/19 08/23/19 23:59 07:59 15:59 Intake Total 50 100 Balance 50 100 Laboratory Tests 08/23/19 05:15 08/23/19 05:15 08/23/19 08/23/19 05:15 05:15 WBC 10.3 H RBC 3.76 L Hgb 10.0 L Hct 29.4 L MCV 78.2 L MCH 26.6 MCHC 34.0 RDW 17.7 H Plt Count 271 MPV 9.4 Sodium 134 L Potassium 3.6 Chloride 102 Carbon Dioxide 20 L BUN 6 L Creatinine 0.50 L Estim Creat Clear Calc 144 Estimated GFR > 60 Glucose 81 Calcium 8.2 L Total Bilirubin 2.3 H AST 117 H ALT 165 H Alkaline Phosphatase 222 H Total Protein 6.0 L Albumin 2.7 L Post-procedural complaints: none Patient Feedback: Patient satisfied with anesthetic care.
--- NOTE | 2019-08-23 13:29 | PM.DS ---
DS: Diagnosis Admitting Diagnosis Admitting Diagnosis: Calculus of gallbladder with other cholecystitis with obstruction Discharge Diagnosis (1) Cholelithiasis and cholecystitis with obstruction: Onset Date: ~07/2019 Qualifiers: Cholecystitis acuity: acute Cholelithiasis location: gallbladder Qualified Code(s): K80.01 - Calculus of gallbladder with acute cholecystitis with obstruction Code(s): K80.19 - Calculus of gallbladder with other cholecystitis with obstruction Status: Acute Assessment and Plan: Pt is post op lap cholecystectomy yesterday. POD day 1 ,pt doing well tolerating a diet. Hopeful discharge today, with follow up with Dr Parikh surgery . I have completed patients FMLA papers for her to be off work for 2 weeks post surgery. (2) Right lower lobe consolidation: Code(s): J18.1 - Lobar pneumonia, unspecified organism Status: Acute Assessment and Plan: Pt is on iv zosyn, pt had 4 days of iv zosyn while in the hospital, no respiratory complaints today, can stop antibiotics. (3) CHF (congestive heart failure): Qualifiers: Heart failure chronicity: chronic Heart failure type: right-sided Qualified Code(s): I50.812 - Chronic right heart failure Code(s): I50.9 - Heart failure, unspecified Status: Chronic Assessment and Plan: Pt had echocardiogram that demonstrated a right ventricle that was moderately to severely dilated with moderate systolic dysfunction. Repeat echocardiogram August 2017 demonstrated mild left ventricular hypertrophy, hyper trabeculation of the myocardium and normal left ventricular systolic dysfunction normal EF and a hypermobile atrial septum with [id number] shunt with color flow consistent with PFO versus ASD. CHF is chronic and stable presently. (4) IUD migration: Qualifiers: Encounter type: initial encounter Qualified Code(s): T83.32XA - Displacement of intrauterine contraceptive device, initial encounter Code(s): T83.32XA - Displacement of intrauterine contraceptive device, initial encounter Status: Acute Assessment and Plan: CT mentions that IUD is eccentrically located within the myometrium and may be partially out of the endometrial cavity. Follow with OB/ COMMERCIAL LENDING ASSISTANT is recommended on discharge. DS: Summary Time Spent with Patient Time attestation: Total time spent providing and/or coordinating discharge services:38 minutes on day of discharge Exam Narrative: Exam Narrative: General: Younger female calm and relaxed HEENT: NL mucous membranes Neck: No JVD, no gross lymphadenopathy, trachea midline Respiratory: Clear to auscultation bilaterally Cardiovascular: Regular rate, normal S1-S2, 2+ bilateral radial pedal pulses Gastrointestinal: Sp lap charles with small healing incisions, abdo soft with mild TTP around incisions Skin:Many tattoos Extremities: No clubbing cyanosis or edema, moves all extremities equally Neurological: Alert and oriented, speech is clear, no facial asymmetry Psychiatric: Appropriate mood and affect, pleasant and cooperative DS: Data Data Completed and Pending Pending studies at discharge: Pending at discharge 08/22/19 15:10 Surgical [PTH] Routine Labs on day of discharge: Labs from last 24 hours 08/23/19 08/23/19 05:15 05:15 WBC 10.3 H RBC 3.76 L Hgb 10.0 L Hct 29.4 L MCV 78.2 L MCH 26.6 MCHC 34.0 RDW 17.7 H Plt Count 271 MPV 9.4 Sodium 134 L Potassium 3.6 Chloride 102 Carbon Dioxide 20 L BUN 6 L Creatinine 0.50 L Estim Creat Clear Calc 144 Estimated GFR > 60 Glucose 81 Calcium 8.2 L Total Bilirubin 2.3 H AST 117 H ALT 165 H Alkaline Phosphatase 222 H Total Protein 6.0 L Albumin 2.7 L Discharge Plan Discharge Attending physician on discharge: Alethea Gonzalez Consulting providers: Abelardo Parikh ; Kelechi Guajardo Discharging
--- NOTE | 2019-08-23 14:49 | PM.PNGS ---
Progress Note: A&P Assessment and Plan (1) Cholelithiasis and cholecystitis with obstruction: Onset Date: ~07/2019 Qualifiers: Cholelithiasis location: gallbladder Cholecystitis acuity: acute Qualified Code(s): K80.01 - Calculus of gallbladder with acute cholecystitis with obstruction Code(s): K80.19 - Calculus of gallbladder with other cholecystitis with obstruction Status: Acute Assessment and Plan: doing well on postop day 1. Okay to discharge today. Discharge instructions discussed with patient. Follow-up with Dr. Parikh in the office in 2 weeks. Subjective Subjective Date/Time Seen: 08/23/19 14:49 Tolerating diet, pain controlled, no fevers. No other complaints. Wants to go home. Exam GI: Inspection: incision ( Clean and intact) GI Palp: Yes tender ( incisional) Objective Data Vital Signs Vital Signs: Vital Signs - 24 hr 08/22/19 16:05 08/22/19 16:15 08/22/19 16:30 Temperature 36.9 C Pulse Rate 78 69 81 Respiratory Rate 30 H 20 20 Blood Pressure 143/102 H 156/93 H 148/88 H Pulse Oximetry 100 100 100 08/22/19 16:45 08/22/19 17:00 08/22/19 17:15 Temperature Pulse Rate 61 80 72 Respiratory Rate 17 14 24 H Blood Pressure 170/90 H 130/105 H 147/84 H Pulse Oximetry 98 100 100 08/22/19 17:30 08/22/19 17:40 08/22/19 18:28 Temperature 36.7 C 36.7 C Pulse Rate 75 78 68 Respiratory Rate 27 H 20 16 Blood Pressure 125/77 155/88 H 142/78 H Pulse Oximetry 100 100 100 08/22/19 22:00 Temperature 36.9 C Pulse Rate 109 H Respiratory Rate 16 Blood Pressure 136/88 Pulse Oximetry 100 Intake/Output Intake/Output: Intake & Output 08/20/19 08/21/19 08/22/19 08/23/19 23:59 23:59 23:59 23:59 Intake Total 2150 2680 2700 390 Output Total 1000 750 900 Balance 1150 1930 1800 390 Meds/Results Medications: Active Medications Generic Name Dose Route Start Last Admin Trade Name Freq PRN Reason Stop Dose Admin Acetaminophen 500 mg 08/22/19 17:43 Tylenol Tablet PO Q6H PRN Mild Pain (1-3) or Fever Hydrocodone Bitart/Acetaminophen 1 tab 08/22/19 17:43 [place] 5-325 Mg PO Q6H PRN Pain Rated 4-6 Hydrocodone Bitart/Acetaminophen 1 tab 08/22/19 17:43 08/23/19 09:51 [place] 7.5-325 Mg PO 1 tab Q6H PRN Administration Pain Rated 7-10 Diphenhydramine HCl 25 mg 08/19/19 21:50 08/22/19 20:23 Benadryl Cap PO 25 mg HS YESSICA Administration Enoxaparin Sodium 40 mg 08/23/19 09:00 08/23/19 09:52 Lovenox SUB-Q 40 mg DAILY YESSICA Administration Hydralazine HCl 5 mg 08/22/19 18:14 Apresoline Hcl Inj IV PUSH Q8H PRN Blood Pressure - High>160/100 Piperacillin/Tazobactam/Dextrose 3.375 gm in 50 mls @ 100 mls/hr 08/20/19 00:00 08/23/19 12:35 Zosyn 3.375 Gm/D5w 50ml Pm IVPB Infused Q6HR YESSICA Infusion Morphine Sulfate 2 mg 08/22/19 17:43 Morphine Sulfate Inj IV PUSH Q2H PRN Pain Rated 4-6 Morphine Sulfate 4 mg 08/22/19 17:43 08/23/19 01:41 Morphine Sulfate Inj IV PUSH 4 mg Q2H PRN Administration Pain Rated 7-10 Naloxone HCl 0.1 mg 08/22/19 17:43 Narcan IV PUSH Q2M PRN Opiate Reversal Senna/Docusate Sodium 2 tab 08/22/19 21:00 08/22/19 20:24 Senokot S PO 2 tab HS YESSICA Administration Radiology Results: ITS Impressions Abdomen/Pelvis CT 08/19/19 14:05 IMPRESSION: 1. Right lower lobe groundglass nodular opacities suspicious for developing pneumonia. 2. Small to moderate amount of perihepatic, pericholecystic and periportal fluid. Generalized mesenteric, body wall edema. 3. Cholelithiasis, can't determine gallbladder wall thickness. If acute cholecystitis clinical possibility consider ultrasound. 4. IUD eccentrically located within myometrium, could be partly out of the endometrial cavity. Chest X-Ray 08/19/19 14:36 IMPRESSION: 1. Development of cardiomegaly. Possible CHF or cardiomyopathy. 2. Christine
== END 2019-08-23 15:35 | disposition home or self-care (01) | DRG 417 ==
LOC: ANHED 18:34 → ANH3MED 18:50
PROVIDERS: Emergency Medicine; Surgery; Admitting Provider Internal Medicine; Emergency Provider Emergency Medicine; PCP Physician Assistant; Visit Provider Family Medicine
PROC: 0FT44ZZ Resection of Gallbladder, Percutaneous Endoscopic Approach (ICD-10-PCS; CPT 47562; principal; 2019-08-22 14:00)
DX: K80.01 Calculus of gallbladder with acute cholecystitis with obstruction (principal); J18.1 Lobar pneumonia, unspecified organism; I50.812 Chronic right heart failure; G47.33 Obstructive sleep apnea (adult) (pediatric); D50.9 Iron deficiency anemia, unspecified; F17.290 Nicotine dependence, other tobacco product, uncomplicated; E66.01 Morbid (severe) obesity due to excess calories; T83.32XA Displacement of intrauterine contraceptive device, initial encounter; Z68.37 Body mass index [BMI] 37.0-37.9, adult; Z28.21 Immunization not carried out because of patient refusal; Z98.84 Bariatric surgery status; Z87.11 Personal history of peptic ulcer disease
CPT/HCPCS: 36415; 71045; 74177; 74183; 74300; 76376; 76705; 80053; 81001; 81025; 83605; 83690; 83735; 83880; 84484; 85025; 85027; 86850; 86900; 86901; 87081; 88304; 93005; 96361; 96365; 96375; 96376; 99285; A9270; A9577; G0378; G0379; J0131; J0360; J1100; J1170; J1650; J1885; J2250; J2270; J2405; J2543; J2704; J2710; J3010; J3360; J7030; J7120; Q9966; Q9967

== ENCOUNTER 2019-11-17 11:23 | Emergency (ER) | payer BC, SELFPAY ==
--- NOTE | 2019-11-17 11:29 | ED.BACK ---
HPI - Back Pain/Injury General Chief Complaint: Urogenital-Female Stated Complaint: back pain, possible kidney inf Time Seen by Provider: 11/17/19 11:44 Source: patient and RN notes reviewed Mode of arrival: ambulatory Limitations: no limitations History of Present Illness HPI Narrative: 34-year-old female presents with concern for bilateral low back pain. She denies trauma, injury. 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 She reports she can find positions of comfort, however with certain movements the pain twinges, she reports occasional pain radiating to her right buttock. She reports taking leftover hydrocodone with no relief. Reports history of rheumatoid arthritis. She denies ice or heat therapy. She denies abdominal pain, perianal anesthesia, loss of bowel or bladder function, fever, dysuria, hematuria, frequency, urgency. MD elicited complaint: back pain Related Data Home Medications Medication Instructions Recorded Confirmed adalimumab [Humira] 40 mg SUBCUT [id number] 11/17/19 11/17/19 methylprednisolone 4 mg PO DAILY 11/17/19 11/17/19 Allergies Allergy/AdvReac Type Severity Reaction Status Date / Time YAZMIN Inhibitors Allergy Severe Swelling Verified 11/17/19 11:42 of Lip/Tongue/Throat Review of Systems Review of Systems: Narrative: CONSTITUTIONAL: Denies malaise, chills, sweats, or fever. EYES: Denies visual changes, redness, or discharge. CARDIOVASCULAR: Denies chest pain, palpitations, or edema. RESPIRATORY: Denies dyspnea. GASTROINTESTINAL: Denies abdominal pain, nausea, vomiting, diarrhea GENITOURINARY: Denies dysuria or hematuria. SKIN: Denies bruising, redness MUSCULOSKELETAL: Reports bilateral low back pain radiating to the right buttock NEUROLOGIC: Denies numbness, weakness, or headache. All systems reviewed & are unremarkable except as noted in HPI and below PMFSH Social History Social History Social History: The patient is an employee at a [employer]. She lives with father of her children. She has 2 children. Years smoked: 3 Smoking status: Current every day smoker Tobacco type: cigars Second hand tobacco smoke exposure: Yes Additional smoking assessment comments: Smokes 4 black and mild cigars a day and smokes marijuana daily Alcohol intake: current Substance use type: marijuana Gender identity (if verbalized by the patient): Female Spiritual care concerns: No Agree to blood products: Yes Comments At time of signature, agree with nursing past medical, surgical, social and family history. There is no relevant family history pertinent to the presenting complaint Exam Narrative: Exam Narrative: GENERAL: Well-appearing, well-nourished, and in no acute distress. HEAD: Normocephalic, atraumatic. EYES: PERRLA and EOMI. NECK: Supple. No lymphadenopathy. CHEST: Clear to auscultation. No respiratory distress. HEART: Regular rate and rhythm. Distal pulses palpable and equal, cap refill <3 seconds ABDOMEN: Soft, nontender, nondistended, normal active bowel sounds, no palpable or pulsatile masses. No CVA tenderness MUSCULOSKELETAL: Normal range of motion and strength in all extremities; 5/5 strength with hip flexion and extension, dorsiflexion and extension, knee flexion and extension, plantar flexion and extension. Normal sensation in dermatomal distributions with sensitivity to light touch and pain. No midline back tenderness to palpation. No paraspinal tenderness. Transfers from lying to sitting to standing. SKIN: Warm, dry, no rash. No ecchymosis, erythema, open wounds to back. NEURO: No focal deficits. Alert and oriented x3. Reflexes intact. Normal gait. PSYCH: Normal mood and affect Course Course Emergency Course: Patient is aware of diagnosis, understands and agrees to treatment plan. Anticipatory guidance given. Patient agrees
[2019-11-17 11:30] VITALS: BP 120/66; PULSE 63; RESP 14; TEMP 36.6; O2SAT 100
--- NOTE | 2019-11-17 11:55 | PC.NURSE ---
NO UC ORDERED PER DEBO
== END 2019-11-17 12:01 | disposition home or self-care (01) ==
PROVIDERS: Emergency Provider Nurse Practitioner; PCP Physician Assistant
DX: M54.5 Low back pain (principal); F17.290 Nicotine dependence, other tobacco product, uncomplicated; J44.9 Chronic obstructive pulmonary disease, unspecified; G47.30 Sleep apnea, unspecified; Z98.84 Bariatric surgery status; M06.9 Rheumatoid arthritis, unspecified; I50.9 Heart failure, unspecified; Q24.9 Congenital malformation of heart, unspecified
CPT/HCPCS: 81003; 99213; G0463

== ENCOUNTER 2021-01-10 12:49 | Emergency (ER) | payer OTHER, SELFPAY ==
--- NOTE | ~2021-01-10 | XR_ITS ---
EXAMINATION: XR humerus LT INDICATION: Left arm swelling TECHNIQUE: Two views of the left humerus COMPARISON: 04/25/2015 FINDINGS: There is redundancy of the skin of the upper extremity suggesting interval weight loss. No focal soft tissue swelling is identified. Bone alignment is normal. There is no fracture. IMPRESSION: 1. No acute osseous abnormality. Reviewed, dictated and finalized at location A.
--- NOTE | 2021-01-10 12:52 | ED.UPPEXIN ---
HPI - Extremity Injury (Upper) General Chief Complaint: Extremity Problem,Nontraumatic Stated Complaint: left arm pain Time Seen by Provider: 01/10/21 12:52 Source: patient and RN notes reviewed History of Present Illness HPI narrative: Patient is a 35-year-old female who presents the urgent care with complaints of left arm pain. Patient states that she woke up yesterday and noted some swelling to the left upper arm. Patient states that it is more painful to move the arm, make a fist or do any rotation to the arm. 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 Patient has not taken anything for her pain or used any type of ice or heat. Patient has a blood pressure cuff on the right arm and several wrist alerts from local hospitals. Patient states that she was not seen she just sat in the waiting room . Patient reports to have gone to [facility] this morning as well as [facility] this afternoon. No other acute complaints. No acute distress noted. Patient aware of the plan of care. Some parts of this dictation were generated by voice recognition software and may contain typographical and/or grammatical inaccuracies. Related Data Home Medications Medication Instructions Recorded Confirmed adalimumab [Humira] 40 mg SUBCUT [id number] 11/17/19 11/17/19 methylprednisolone 4 mg PO DAILY 11/17/19 11/17/19 golimumab [Simponi] 50 mg SUBCUT DIRECTED 01/10/21 01/10/21 Allergies Allergy/AdvReac Type Severity Reaction Status Date / Time YAZMIN Inhibitors Allergy Severe Swelling Verified 11/17/19 11:42 of Lip/Tongue/Throat Review of Systems Review of Systems: Narrative: CONSTITUTIONAL: Denies fever, chills, or sweats. EYES: Denies visual changes, redness, or discharge. ENT: Denies rhinorrhea, congestion, sore throat, or otalgia. CARDIOVASCULAR: Denies chest pain, palpitations, or edema. RESPIRATORY: Denies cough or dyspnea. GASTROINTESTINAL: Denies abdominal pain, nausea, vomiting, or diarrhea. GENITOURINARY: Denies dysuria or hematuria. SKIN: Denies rash or itching. MUSCULOSKELETAL: Reports of left upper arm pain NEUROLOGIC: Denies headache, numbness, or weakness. All other systems reviewed are negative, except as documented in HPI. [facility] Past Medical History Medical History (Updated 01/10/21 @ 13:26 by STEPH Bailey) Acute renal failure resolved Asthma In childhood Elevated liver enzymes (~07/2019) Peptic ulcer Right-sided congestive heart failure Echocardiogram August 2017: Mild concentric left ventricular hypertrophy, hyper trabeculation of myocardium, normal left global ventricular systolic function normal left ventricular diastolic function EF 55-60% hypokinetic basal inferior segment, mild enlargement left atrium, then hyper mobile atrial septum with [id number] shunt by color Doppler color flow consistent with PFO versus ASD, mild mitral regurg, mild tricuspid regurg, mild pulmonic regurg, trivial pericardial infusion Prior echo 2009 demonstrated right ventricle that was moderately to severely dilated with moderate systolic dysfunction prior to sleep apnea diagnosed Sleep apnea uses CPAP Surgical History Surgical History Gastric bypass status for obesity History of dilation and curettage February 2017 due to missed Hx of section April 17, 2010 Hx of gastric bypass [facility] 2015. Her pre up weight was 467 lb. Hx of tonsillectomy Family History Family History Sibling Acute myocardial infarction History of blood clots Sibling Diabetes mellitus Father Diabetes mellitus Hypertension Renal failure Mother Hypertension Social History Social History Social History: The patient is an employee at a [email or web address].
[2021-01-10 12:54] VITALS: BP 135/74; PULSE 77; RESP 14; TEMP 37.4; O2SAT 100
== END 2021-01-10 13:31 | disposition home or self-care (01) ==
PROVIDERS: Emergency Provider Nurse Practitioner Family; PCP Physician Assistant
DX: S46.912A Strain of unspecified muscle, fascia and tendon at shoulder and upper arm level, left arm, initial encounter (principal); X58.XXXA Exposure to other specified factors, initial encounter; I50.9 Heart failure, unspecified; G47.30 Sleep apnea, unspecified; Z98.84 Bariatric surgery status
CPT/HCPCS: 73060; 99213; G0463

== ENCOUNTER 2022-04-10 18:18 | Emergency (ER) | payer OTHER, SELFPAY ==
[2022-04-10 18:28] VITALS: BP 123/70; PULSE 77; RESP 18; TEMP 37.2; O2SAT 99
--- NOTE | 2022-04-10 18:37 | ED.BACK ---
HPI - Back Pain/Injury General Chief Complaint: Back Pain/Injury Stated Complaint: Right lower back injury Time Seen by Provider: 04/10/22 18:38 Source: patient and RN notes reviewed History of Present Illness HPI Narrative: Patient is a 36-year-old female who presents the urgent care with complaints of right lower back pain. 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 Patient states that she has been using Tylenol and is unable to take NSAIDs due to her history of gastric bypass. No other acute complaints. No acute distress noted. Patient aware of the plan of care. Some parts of this dictation were generated by voice recognition software and may contain typographical and/or grammatical inaccuracies. Related Data Home Medications Medication Instructions Recorded Confirmed gabapentin 100 mg capsule 100 mg PO DAILY 04/10/22 04/10/22 Allergies Allergy/AdvReac Type Severity Reaction Status Date / Time YAZMIN Inhibitors Allergy Severe Swelling Verified 04/10/22 18:33 of Lip/Tongue/Throat oseltamivir [From Tamiflu] Allergy Unknown Verified 04/10/22 18:33 Review of Systems Review of Systems: CONSTITUTIONAL: Denies fever, chills, or sweats. EYES: Denies visual changes, redness, or discharge. ENT: Denies rhinorrhea, congestion, sore throat, or otalgia. CARDIOVASCULAR: Denies chest pain, palpitations, or edema. RESPIRATORY: Denies cough or dyspnea. GASTROINTESTINAL: Denies abdominal pain, nausea, vomiting, or diarrhea. GENITOURINARY: Denies dysuria or hematuria. SKIN: Denies rash or itching. MUSCULOSKELETAL: Reports of right lower back pain NEUROLOGIC: Denies headache, numbness, or weakness. All other systems reviewed are negative, except as documented in HPI. [facility] Past Medical History Medical History (Updated 04/10/22 @ 18:44 by STEPH Bailey) Acute renal failure resolved Asthma In childhood Elevated liver enzymes (~07/2019) Peptic ulcer Right-sided congestive heart failure Echocardiogram August 2017: Mild concentric left ventricular hypertrophy, hyper trabeculation of myocardium, normal left global ventricular systolic function normal left ventricular diastolic function EF 55-60% hypokinetic basal inferior segment, mild enlargement left atrium, then hyper mobile atrial septum with jerq-iy-xdvrs shunt by color Doppler color flow consistent with PFO versus ASD, mild mitral regurg, mild tricuspid regurg, mild pulmonic regurg, trivial pericardial infusion Prior echo 2009 demonstrated right ventricle that was moderately to severely dilated with moderate systolic dysfunction prior to sleep apnea diagnosed Sleep apnea uses CPAP Surgical History Surgical History Gastric bypass status for obesity History of dilation and curettage February 2017 due to missed Hx of section April 17, 2010 Hx of gastric bypass [facility] 2015. Her pre up weight was 467 lb. Hx of tonsillectomy Family History Family History Sibling Acute myocardial infarction History of blood clots Sibling Diabetes mellitus Father Diabetes mellitus Hypertension Renal failure Mother Hypertension Social History Social History Social History: The patient is an employee at a [employer]. She lives with father of her children. She has 2 children. Years smoked: 3 Smoking status: Current every day smoker Tobacco type: cigars Second hand tobacco smoke exposure: Yes Additional smoking assessment comments: Smokes 4 black and mild cigars a day and smokes marijuana daily Alcohol intake: current Substance use type: marijuana Gender identity (if verbalized by the patient): Female Spiritual care concerns: No Agree to blood products: Yes
== END 2022-04-10 18:48 | disposition home or self-care (01) ==
PROVIDERS: Emergency Provider Nurse Practitioner Family; PCP Physician Assistant
DX: S39.012A Strain of muscle, fascia and tendon of lower back, initial encounter (principal); X50.9XXA Other and unspecified overexertion or strenuous movements or postures, initial encounter; Y99.0 Civilian activity done for income or pay; M54.31 Sciatica, right side; F17.290 Nicotine dependence, other tobacco product, uncomplicated; I50.9 Heart failure, unspecified; G47.30 Sleep apnea, unspecified; Z98.84 Bariatric surgery status
CPT/HCPCS: 99213; G0463

== ENCOUNTER 2023-05-10 08:24 | Emergency (ER) | payer OTHER, MEDICAID, SELFPAY ==
[2023-05-10 08:36] VITALS: BP 134/71; PULSE 75; RESP 18; TEMP 36.7; O2SAT 99
--- NOTE | 2023-05-10 08:38 | ED.UPPEXIN ---
HPI - Extremity Injury (Upper) General Chief Complaint: Extremity Injury, Upper Stated Complaint: Left Shoulder/Hand Pain Source: patient and RN notes reviewed History of Present Illness HPI narrative: 37 yo F presents to urgent care with complaints of left posterior shoulder/left lateral neck pain that radiates down to her left fingers x 2 days. Pt states she normally has tingling and numbness in her fingers b/c of chronic cyst-like masses to her hands. Pt denies any posterior neck pain. Denies any fevers, chills, injury, chest pain, or SOB. Pt has not taken anything for pain. 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 Related Data Home Medications Medication Instructions Recorded Confirmed gabapentin 100 mg capsule 100 mg PO DAILY 04/10/22 05/10/23 Allergies Allergy/AdvReac Type Severity Reaction Status Date / Time YAZMIN Inhibitors Allergy Severe Swelling Verified 05/10/23 08:45 of Lip/Tongue/Throat oseltamivir [From Tamiflu] Allergy Unknown Verified 05/10/23 08:45 Review of Systems Review of Systems: CONSTITUTIONAL: Denies fever, chills, or sweats. EYES: Denies visual changes, redness, or discharge. ENT: Denies otalgia and sore throat CARDIOVASCULAR: Denies chest pain, palpitations, or edema. RESPIRATORY: Denies cough or dyspnea. GASTROINTESTINAL: Denies abdominal pain, nausea, vomiting, or diarrhea. GENITOURINARY: Denies dysuria or hematuria. SKIN: Denies rash or itching. MUSCULOSKELETAL: left shoulder pain that radiates down to left fingers NEUROLOGIC: Denies headache, numbness, or weakness. Pertinent positives per HPI. [facility] Past Medical History Medical History (Updated 05/10/23 @ 09:00 by Genevieve Granger, TRIM ATTACHER) Acute renal failure resolved Asthma In childhood Elevated liver enzymes (~07/2019) Peptic ulcer Right-sided congestive heart failure Echocardiogram August 2017: Mild concentric left ventricular hypertrophy, hyper trabeculation of myocardium, normal left global ventricular systolic function normal left ventricular diastolic function EF 55-60% hypokinetic basal inferior segment, mild enlargement left atrium, then hyper mobile atrial septum with urgn-ny-igugk shunt by color Doppler color flow consistent with PFO versus ASD, mild mitral regurg, mild tricuspid regurg, mild pulmonic regurg, trivial pericardial infusion Prior echo 2009 demonstrated right ventricle that was moderately to severely dilated with moderate systolic dysfunction prior to sleep apnea diagnosed Sleep apnea uses CPAP Surgical History Surgical History Gastric bypass status for obesity History of dilation and curettage February 2017 due to missed Hx of section April 17, 2010 Hx of gastric bypass [facility] 2015. Her pre up weight was 467 lb. Hx of tonsillectomy Family History Family History Sibling Acute myocardial infarction History of blood clots Sibling Diabetes mellitus Father Diabetes mellitus Hypertension Renal failure Mother Hypertension Social History Social History Social History: The patient is an employee at a [employer]. She lives with father of her children. She has 2 children. Years smoked: 3 Smoking status: Current every day smoker Tobacco type: cigars Second hand tobacco smoke exposure: Yes Additional smoking assessment comments: Smokes 4 black and mild cigars a day and smokes marijuana daily Alcohol intake: current Substance use type: marijuana Gender identity (if verbalized by the patient): Female Spiritual care concerns: No Agree to blood products: Yes Comments At the time of my signature, I reviewed and agree with the nursing past medical, surgical, social, and family history. There is no relevant family history pertinent to the patient complaint. Exam Narrative:
== END 2023-05-10 09:13 | disposition home or self-care (01) ==
PROVIDERS: Emergency Provider Nurse Practitioner Family; PCP Physician Assistant
DX: M54.12 Radiculopathy, cervical region (principal); I50.9 Heart failure, unspecified; J45.909 Unspecified asthma, uncomplicated; F17.210 Nicotine dependence, cigarettes, uncomplicated; Z79.899 Other long term (current) drug therapy
CPT/HCPCS: 99213; G0463

== ENCOUNTER 2024-02-20 13:01 | Emergency (ER) | payer OTHER, SELFPAY ==
[2024-02-20 13:14] VITALS: BP 135/65; PULSE 70; RESP 16; TEMP 37; O2SAT 98
--- NOTE | 2024-02-20 13:25 | ED.URI ---
HPI - URI/Sore Throat General Chief Complaint: Upper Respiratory Infection Stated Complaint: poss sinus infection Time Seen by Provider: 02/20/24 13:26 Source: patient and RN notes reviewed Mode of arrival: ambulatory Limitations: no limitations History of Present Illness HPI Narrative: 38-year-old female presented for complaint of a sinus infection. She states 2 nights ago she started with a headache and nasal congestion, she took an [id number] sinus medicine from the [employer] and then her sinuses started draining. Since then she says when she lays flat she feels more congestion. Endorses cough. Denies shortness of breath, nausea vomiting, diarrhea, fevers or lethargy. MD elicited complaint: cough Related Data Home Medications Medication Instructions Recorded Confirmed hydroxychloroquine 200 mg tablet 200 mg PO BID 02/20/24 02/20/24 Allergies Allergy/AdvReac Type Severity Reaction Status Date / Time YAZMIN Inhibitors Allergy Severe Swelling Verified 02/20/24 13:12 of Lip/Tongue/Throat oseltamivir [From Tamiflu] Allergy Unknown Verified 02/20/24 13:12 Review of Systems Review of Systems: CONSTITUTIONAL: Endorses malaise, chills, sweats, fever EYES: Denies visual changes, redness, or discharge ENT: Reports rhinorrhea, congestion, denies otalgia, sore throat CARDIOVASCULAR: Denies chest pain, palpitations, edema RESPIRATORY: Reports cough, post nasal drainage. Denies dyspnea GASTROINTESTINAL: Denies abdominal pain, nausea, vomiting, diarrhea SKIN: Denies rash or itching MUSCULOSKELETAL: denies myalgia NEUROLOGIC: Denies headache [facility] Past Medical History Medical History (Updated 02/20/24 @ 13:34 by Nisa Guerrero APRN) Acute renal failure resolved Asthma In childhood Elevated liver enzymes (~07/2019) Peptic ulcer Right-sided congestive heart failure Echocardiogram August 2017: Mild concentric left ventricular hypertrophy, hyper trabeculation of myocardium, normal left global ventricular systolic function normal left ventricular diastolic function EF 55-60% hypokinetic basal inferior segment, mild enlargement left atrium, then hyper mobile atrial septum with [id number]-ua-rvlqf shunt by color Doppler color flow consistent with PFO versus ASD, mild mitral regurg, mild tricuspid regurg, mild pulmonic regurg, trivial pericardial infusion Prior echo 2009 demonstrated right ventricle that was moderately to severely dilated with moderate systolic dysfunction prior to sleep apnea diagnosed Sleep apnea uses CPAP Surgical History Surgical History Gastric bypass status for obesity History of dilation and curettage February 2017 due to missed Hx of section April 17, 2010 Hx of gastric bypass [facility] 2015. Her pre up weight was 467 lb. Hx of tonsillectomy Family History Family History Sibling Acute myocardial infarction History of blood clots Sibling Diabetes mellitus Father Diabetes mellitus Hypertension Renal failure Mother Hypertension Social History Social History Social History: The patient is an employee at a [employer]. She lives with father of her children. She has 2 children. Years smoked: 3 Smoking status: Current every day smoker Tobacco type: cigars Second hand tobacco smoke exposure: Yes Additional smoking assessment comments: Smokes 4 black and mild cigars a day and smokes marijuana daily Alcohol intake: current Substance use type: marijuana Gender identity (if verbalized by the patient): Female Spiritual care concerns: No Agree to blood products: Yes Exam Narrative: GENERAL: well-appearing, nontoxic no acute distress. EYES: PERRLA, conjunctivae clear ENT: Mucous membranes moist. TMs pearly samuel with dull light reflex bilaterally; no tragal
== END 2024-02-20 13:39 | disposition home or self-care (01) ==
PROVIDERS: Emergency Provider Nurse Practitioner Family; PCP Physician Assistant
DX: B34.9 Viral infection, unspecified (principal); F17.290 Nicotine dependence, other tobacco product, uncomplicated; F12.90 Cannabis use, unspecified, uncomplicated; I50.9 Heart failure, unspecified; G47.33 Obstructive sleep apnea (adult) (pediatric); Z98.84 Bariatric surgery status
CPT/HCPCS: 99213; G0463

== ENCOUNTER 2024-05-11 09:55 | Emergency (ER) | payer OTHER, SELFPAY ==
--- NOTE | ~2024-05-11 | XR_ITS ---
EXAMINATION: [id number] DATE: 05/11/2024 10:31 INDICATION: Right rib pain. TECHNIQUE: A frontal view of the chest and 2 views on 5 radiographs of the right ribs were obtained. COMPARISON: Chest single view 08/09/2019 FINDINGS: There is no pneumonia, pleural effusion, or pneumothorax. The heart size is normal. Surgica l clips in the right upper quadrant are likely from cholecystectomy. IMPRESSION: 1. No rib fracture. Reviewed, dictated and finalized at location A. IMPRESSION: 1. No rib fracture.
[2024-05-11 10:00] VITALS: BP 118/64; PULSE 78; RESP 20; TEMP 36.6; O2SAT 100
--- NOTE | 2024-05-11 10:12 | ED.URI ---
HPI - URI/Sore Throat General Chief Complaint: Upper Respiratory Infection Stated Complaint: Constant pain right chest area History of Present Illness HPI Narrative: Patient presents with right-sided rib pain. 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 Patient states she has had right-sided rib pain since the incident. No shortness of breath and no chest pain. Patient also states she has a cough history of asthma and is worried that she might have pneumonia. Related Data Home Medications Medication Instructions Recorded Confirmed hydroxychloroquine 200 mg tablet 200 mg PO BID 02/20/24 05/11/24 Allergies Allergy/AdvReac Type Severity Reaction Status Date / Time YAZMIN Inhibitors Allergy Severe Swelling Verified 05/11/24 10:14 of Lip/Tongue/Throat oseltamivir [From Tamiflu] Allergy Unknown Verified 05/11/24 10:14 Review of Systems Review of Systems: CONSTITUTIONAL: Denies fever, chills, or sweats. EYES: Denies visual changes, redness, or discharge. ENT: Denies rhinorrhea, congestion, sore throat, or otalgia. CARDIOVASCULAR: Denies chest pain, palpitations, or edema. RESPIRATORY: Denies cough or dyspnea. GASTROINTESTINAL: Denies abdominal pain, nausea, vomiting, or diarrhea. GENITOURINARY: Denies dysuria or hematuria. SKIN: Denies rash or itching. MUSCULOSKELETAL: Denies back pain, joint pain, or myalgia. NEUROLOGIC: Denies headache, numbness, or weakness. PSYCHIATRIC: Denies anxiety or depression. [facility] Past Medical History Medical History (Updated 05/11/24 @ 10:33 by STEPH Brito) Acute renal failure resolved Asthma In childhood Elevated liver enzymes (~07/2019) Peptic ulcer Right-sided congestive heart failure Echocardiogram August 2017: Mild concentric left ventricular hypertrophy, hyper trabeculation of myocardium, normal left global ventricular systolic function normal left ventricular diastolic function EF 55-60% hypokinetic basal inferior segment, mild enlargement left atrium, then hyper mobile atrial septum with lrqg-[id number]-cgaal shunt by color Doppler color flow consistent with PFO versus ASD, mild mitral regurg, mild tricuspid regurg, mild pulmonic regurg, trivial pericardial infusion Prior echo 2009 demonstrated right ventricle that was moderately to severely dilated with moderate systolic dysfunction prior to sleep apnea diagnosed Sleep apnea uses CPAP Surgical History Surgical History Gastric bypass status for obesity History of dilation and curettage February 2017 due to missed Hx of section April 17, 2010 Hx of gastric bypass [facility] 2015. Her pre up weight was 467 lb. Hx of tonsillectomy Family History Family History Sibling Acute myocardial infarction History of blood clots Sibling Diabetes mellitus Father Diabetes mellitus Hypertension Renal failure Mother Hypertension Social History Social History Social History: The patient is an employee at a [employer]. She lives with father of her children. She has 2 children. Years smoked: 3 Smoking status: Current every day smoker Tobacco type: cigars Second hand tobacco smoke exposure: Yes Additional smoking assessment comments: Smokes 4 black and mild cigars a day and smokes marijuana daily Alcohol intake: current Substance use type: marijuana Gender identity (if verbalized by the patient): Female Spiritual care concerns: No Agree to blood products: Yes Comments At time of signature, agree with nursing past medical, surgical, social and family history. There is no relevant family history pertinent to the presenting complaint Exam Narrative: The patient is a well-developed, well-nourished in no acute distress. SKIN: Ski
== END 2024-05-11 10:45 | disposition home or self-care (01) ==
PROVIDERS: Emergency Provider Nurse Practitioner Family; PCP Physician Assistant
DX: M94.0 Chondrocostal junction syndrome [Tietze] (principal); J98.4 Other disorders of lung; F17.290 Nicotine dependence, other tobacco product, uncomplicated; F12.90 Cannabis use, unspecified, uncomplicated; I50.9 Heart failure, unspecified; G47.30 Sleep apnea, unspecified; E66.9 Obesity, unspecified; Z68.37 Body mass index [BMI] 37.0-37.9, adult; Z98.84 Bariatric surgery status
CPT/HCPCS: 71101; 99213; G0463

== ENCOUNTER 2024-06-28 14:41 | Emergency (ER) | payer OTHER, SELFPAY ==
[2024-06-28 14:48] VITALS: BP 121/69; PULSE 81; RESP 24; TEMP 36.6; O2SAT 100
--- NOTE | 2024-06-28 15:02 | ED.EYEPROB ---
HPI - Eye Problem General Chief complaint: Eye Problems Stated complaint: rt eye scratched History of Present Illness HPI Narrative: Patient presents with and right eye problem. Patient states she wears false eyelashes and thinks she got an eyelash stuck in her right eye yesterday. Patient states she thinks she got it out but still feels like something is in her eye. No vision problems. Does not wear glasses does not wear contact lenses. Related Data Home Medications Medication Instructions Recorded Confirmed hydroxychloroquine 200 mg tablet 200 mg PO BID 02/20/24 05/11/24 Allergies Allergy/AdvReac Type Severity Reaction Status Date / Time YAZMIN Inhibitors Allergy Severe Swelling Verified 06/28/24 14:43 of Lip/Tongue/Throat oseltamivir [From Tamiflu] Allergy Unknown Verified 06/28/24 14:43 Review of Systems Review of Systems: CONSTITUTIONAL: Denies chills, or sweats. Reports fever and generalized body aches EYES: Denies visual changes, redness, or discharge. ENT: Denies otalgia. Reports nasal congestion runny nose and sore throat CARDIOVASCULAR: Denies chest pain, palpitations, or edema. RESPIRATORY: Denies dyspnea. Reports occasional cough GASTROINTESTINAL: Denies abdominal pain, nausea, vomiting, or diarrhea. GENITOURINARY: Denies dysuria or hematuria. SKIN: Denies rash or itching. MUSCULOSKELETAL: Denies back pain, joint pain, or myalgia. Reports generalized body aches NEUROLOGIC: Denies headache, numbness, or weakness. PSYCHIATRIC: Denies anxiety or depression. FOR[facility]LY [facility], [facility] Past Medical History Medical History (Updated 06/28/24 @ 15:06 by STEPH Brito) Acute renal failure resolved Asthma In childhood Elevated liver enzymes (~07/2019) Peptic ulcer Right-sided congestive heart failure Echocardiogram August 2017: Mild concentric left ventricular hypertrophy, hyper trabeculation of myocardium, normal left global ventricular systolic function normal left ventricular diastolic function EF 55-60% hypokinetic basal inferior segment, mild enlargement left atrium, then hyper mobile atrial septum with [id number] shunt by color Doppler color flow consistent with PFO versus ASD, mild mitral regurg, mild tricuspid regurg, mild pulmonic regurg, trivial pericardial infusion Prior echo 2009 demonstrated right ventricle that was moderately to severely dilated with moderate systolic dysfunction prior to sleep apnea diagnosed Sleep apnea uses CPAP Surgical History Surgical History Gastric bypass status for obesity History of dilation and curettage February 2017 due to missed Hx of section April 17, 2010 Hx of gastric bypass [facility] 2016. Her pre up weight was 467 lb. Hx of tonsillectomy Family History Family History Sibling Acute myocardial infarction History of blood clots Sibling Diabetes mellitus Father Diabetes mellitus Hypertension Renal failure Mother Hypertension Social History Social History Social History: The patient is an employee at a [employer]. She lives with father of her children. She has 2 children. Years smoked: 3 Smoking status: Current every day smoker Tobacco type: cigars Second hand tobacco smoke exposure: Yes Additional smoking assessment comments: Smokes 4 black and mild cigars a day and smokes marijuana daily Alcohol intake: current Substance use type: marijuana Gender identity (if verbalized by the patient): Female Spiritual care concerns: No Agree to blood products: Yes Comments At time of signature, agree with nursing past medical, surgical, social and family history. There is no relevant family history pertinent to the presenting complaint Exam Narrative: GENERAL: Well-appearing, well-nourished, and in no acute distress. HEAD: Normocephalic, atraumatic. EYES: PERRLA and EOMI. Abrasion to right eye ENT: Nares clear, no rhinorrhea or epistaxis. Mucous membranes moist. NECK: Supple. CHEST: Clear to auscultation. No respiratory distress. HEART: Regular rate and rhythm. No murmur heard. Normal peripheral pulses. ABDOMEN: Soft, nontender, nondistended, normal active bowel sounds. EXTREMITIES: Normal range of motion. No edema. SKIN: Warm, dry, no rash. NEURO: No focal deficits. Alert and oriented x3. Elbert Coma Scale Eye Opening: Spontaneous 4 Elbert Coma Scale Motor: Obeys Commands 6 Heena Coma Scale Verbal: Oriented 5 Heena Coma Scale Total 15 Course Course Level of Care: Express Care Visit Vital Signs Vital signs: Vital Signs Temperature 36.6 C 06/28/24 14:48 Pulse Rate 81 06/28/24 14:48 Respiratory Rate 24 H 06/28/24 14:48 Blood Pressure 121/69 06/28/24 14:48 Pulse Oximetry 100 06/28/24 14:48 Oxygen Delivery Room Air 06/28/24 14:48 Temperature 36.6 C 06/28/24 14:48 Pulse Rate 81 06/28/24 14:48 Respiratory Rate 24 H 06/28/24 14:48 Blood Pressure 121/69 06/28/24 14:48 Pulse Oximetry 100 06/28/24 14:48 Oxygen Delivery Room Air 06/28/24 14:48 Method of inspection: Right eye, viewed with fluorescein, viewed with slit lamp, ALCAINE APPLIED, Pupil: Both eyes, 2 mm, equal, reactivity brisk to direct light, Conjunctiva: Right, not with conjunctivitis, not pale, not with subconjunctival hemorrhage, Cornea: Right, no abrasions, Sclera: Right, clear, Intraocular pressure: Right, 16 mm Hg, Red reflex: Bilaterally, present. corneal abrasion to right cornea Discharge Plan Discharge Clinical Impression: Corneal abrasion Patient Disposition: Home, Self-Care Condition: Stable Instructions: Corneal Abrasion (DC) Additional Instructions: cold compresses to the eyes for comfort May need warm compresses to remove debris in the morning When cleaning the eyes used a washcloth in one direction then change washcloths or use a cotton ball in one direction and then his cotton balls Eyedrops as directed--may be more soothing if left in the refrigerator Do not share medicine--do not touch the eye with the medicine Tylenol or ibuprofen for pain Avoid screen time--television, computer, tablet or phone. Also no reading or driving Follow-up with PCP or assembler clip on sunglasses as directed -If you have any worsening of symptoms or any other concerns please go to the ED immediately. Prescriptions: New ciprofloxacin HCl 0.3 % drops 2 drop RIGHT EYE Q4H PRN (Reason: abrasion) 5 Days Qty: 5 0RF Rx Instructions: 2 drps; No Action hydroxychloroquine 200 mg tablet 200 mg PO BID albuterol sulfate 90 mcg/actuation HFA aerosol inhaler 2 inh inhalation QID PRN (Reason: shortness of breath or wheezing) Qty: 8.5 0RF fluticasone propionate [Flonase Allergy Relief] 50 mcg/actuation spray,suspension 1 spray intranasal DAILY PRN (Reason: allergy symptoms) Qty: 16 0RF Rx Instructions: administer into each nostril fluticasone propionate 220 mcg/actuation HFA aerosol inhaler 2 inh inhalation Q12H Qty: 12 0RF Rx Instructions: Rinse mouth after each use Follow-up/Referrals: Silver,CECILY Lieberman [Primary Care Provider] -
== END 2024-06-28 15:14 | disposition home or self-care (01) ==
PROVIDERS: Emergency Provider Nurse Practitioner Family; PCP Physician Assistant
DX: S05.01XA Injury of conjunctiva and corneal abrasion without foreign body, right eye, initial encounter (principal); X58.XXXA Exposure to other specified factors, initial encounter; I50.9 Heart failure, unspecified; G47.30 Sleep apnea, unspecified; Z98.84 Bariatric surgery status; F17.290 Nicotine dependence, other tobacco product, uncomplicated; F12.90 Cannabis use, unspecified, uncomplicated
CPT/HCPCS: 99213; A9270; G0463

== ENCOUNTER 2025-05-19 17:31 | Emergency (ER) | payer OTHER, SELFPAY ==
--- OUTSIDE RECORDS SUMMARY | 2025-05-19 17:33 | XMS_ITS | Encounter Summary ---
Author Organization [facility] Address [address] [place] [id number] Care Team Providers Care Analytics Analyst Name Role Phone Luisana Sheppard Primary Care Provider [phone]- [phone] Miscellaneous, Not In File Primary Care Provider Unavailable Luisana Sheppard Primary Care Provider [phone]- [phone] Encounter Details Date Type Department Care Team (Late st Contact Info) Description 06/21/2010 Orders Only [facility] Provider, MD Hailey [address] [place] [id number] Social History Tobacco Use Types Packs/Day Years Used Date Smoking Tobacco: Never Assessed Comments Unknown Sex and Gender Information Value Date Recorded Sex Assigned at Not on file 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
--- OUTSIDE RECORDS SUMMARY | 2025-05-19 17:33 | XMS_ITS | Clinical Summary ---
Author Organization [facility] Address [address] [place] [address] Care Team Providers Care Marina Dry Dock Manager Name Role Phone Luisana Sheppard Primary Care Provider +1- [phone] Allergies Active Allergy Reactions Criticality Noted Date Comments Cecilio Inhibitors Other (See comments),Anaphylaxis,A ngioedema High 04/02/2014 Reaction: unknown, , Reaction: ANAPHYLAXIS, Other reaction(s): Swelling, angioedema Swelling, angioedema Azithromycin Other (See comments) Low 08/03/2020 Stroke like symptoms Chlorthalidone Anaphylaxis,Swelling High 04/02/2014 Swelling Oseltamivir Other (See comments) Low 12/31/2017 STROKE LIKE SYMPTOMS Medications ergocalciferol (VITAMIN D) 50,000 unit capsuleIndicat ions:Vitamin D Deficiency Take 1 capsule (50,000 Units total) by mouth once a week 4 capsule 08/31/19 24 Active Additional Information Patient not taking.Reported on 02/27/2024 cyanocobalamin (Vitamin B-12) 1,000 mcg tabletIndicati ons:Prevention of Vitamin B12 Deficiency Take 1 tablet (1,000 mcg total) by mouth daily 30 tablet 11 11/23/19 24 Active Additional Information Patient not taking.Reported on 04/18/2024 amoxicillin-cl avulanate (AUGMENTIN) 875-125 mg per tablet Take 1 tablet (875 mg of amoxicillin total) by mouth 2 (two) times a day 20 tablet 02/28/20 24 Active Additional Information Patient not taking.Reported on 04/18/2024 fluconazole (DIFLUCAN) 150 mg tabletIndicati ons:Yeast infection Take one tab now. Repeat in 7 days if symptoms persist. 2 tablet 03/05/20 24 Active Additional Information Patient not taking.Reported on 04/18/2024 valACYclovir (VALTREX) 500 mg tablet TAKE 1 TABLET(500 MG) BY MOUTH DAILY 30 tablet 5 03/10/20 24 Active hydroxychloroq uine (PLAQUENIL) 200 mg tabletIndicati ons:Inflammato ry arthritis,Rayn aud's disease with gangrene (HCC) Take 1 tablet (200 mg total) by mouth 2 (two) times a day 120 tablet 1 04/18/20 24 Active albuterol HFA (PROVENTIL HFA,VENTOLIN HFA,PROAIR HFA) 90 mcg/actuation inhaler Inhale 2 puffs every 4 (four) hours as needed for wheezing 1 Inhaler 10/28/19 19 021 Discontinued Active Problems Problem Noted Date Diagnosed Date MCTD (mixed connective tissue disease) Lia-1 antibody positive 04/20/2024 Subacute cough 03/09/2024 Assessment & Plan (03/09/2024 9:30 PM CDT): Persistent subacute cough. Recommend a chest x-ray to determine if she has pneumonia versus sinusitis versus other etiology. Follow-up pending the results of the chest x-ray. Encouraged [id number] cough suppressants as needed BMI 37.0-37.9, adult 03/09/2024 Assessment & Plan (03/09/2024 9:29 PM CDT): Discussed the patient's BMI. The BMI is above average. BMI management plan is completed. BMI Follow-up includes: nutrition counseling, exercise counseling and education provided. Reviewed with patient the parameters to have skin removed after weight loss. These were provided by Dermatology. I have copied into the note reviewed them with her and she has not had any skin irritation or yeast infections. Iron deficiency anemia, unspecified 11/23/2023 Raynaud's disease with gangrene 08/28/2023 Family history of pulmonary embolism 08/28/2023 Cervical cancer screening 06/09/2023 Assessment & Plan (06/09/2023 7:27 PM CDT): Pap smear and HPV obtained today. Reviewed routine screenings. Screening for STD (sexually transmitted disease) 06/09/2023 Assessment & Plan (06/09/2023 7:27 PM CDT): Patient requests STD screening. No known exposure. Cigarette smoker 06/09/2023 Assessment & Plan (06/09/2023 7:27 PM CDT): Encouraged smoking cessation. Discussed 3 minutes. Reviewed options for assistance with cessation. Reviewed extermination inspector sequela associated with smoking. Pt declines assistance at this time but may contact the office at anytime for further help as they desire. Morbid obesity 06/04/2023 Assessment & Plan (03/09/2024 9:30 PM CDT): Discussed the patient's BMI. The BMI is above average. BMI management plan is completed. BMI Follow-up includes: nutrition counseling, exercise counseling and education provided. Patient has an obesity-related condition (not limited to: hypertension, obstructive sleep apnea, osteoarthritis, hyperlipidemia, diabetes, etc.). Therefore, morbid obesity may be documented for patients with a BMI between 35.00-39.99. Assessment & Plan (06/09/2023 7:27 PM CDT): Discussed the patient's BMI. The BMI is above average. BMI management plan is completed. BMI Follow-up includes: nutrition counseling, exercise counseling and education provided. Patient has an obesity-related condition (not limited to: hypertension, obstructive sleep apnea, osteoarthritis, hyperlipidemia, diabetes, etc.). Therefore, morbid obesity may be documented for patients with a BMI between 35.00-39.99. Carpal tunnel syndrome 12/25/2021 Assessment & Plan (12/25/2021 11:34 PM CDT): Carpal tunnel symptoms that are also consistent with the recent nerve conduction test. Encouraged her to continue with cock-up splints and anti-inflammatories as needed. She has had some relief with gabapentin so I will refill this for her. Will refer to Dr. Bassett for further evaluation and management of her carpal tunnel symptoms. History of asthma 08/03/2020 Encounter for routine gyneco logical examination with Papanicolaou smear of cervix 04/18/2020 Assessment & Plan (06/09/2023 7:27 PM CDT): Encouraged healthy lifestyle, good nutrition and exercise. Encouraged Calcium and Vitamin D and weight bearing exercise for bone health. Reviewed immunizations Reviewed age appropirate screenings. Patient declines control. States she is okay if she gets . Encouraged her to start vitamins so if she does get this is already on board. She prefers mjxa-[id number]-[id number] gummy that she is used in the past Assessment & Plan (04/18/2020 7:21 PM CDT): Encouraged healthy lifestyle, good nutrition and exercise. Encouraged Calcium and Vitamin D and weight bearing exercise for bone health. Reviewed immunizations Reviewed age appropirate screenings. Inflammatory arthritis 03/02/2020 Assessment & Plan (06/09/2023 7:26 PM CDT): Patient with history of rheumatoid arthritis. Was following with an Mprovider. Now play [facility] so would like to transition to a [facility] preferred provider for insurance Referral placed for [facility] physician Assessment & Plan (03/02/2020 2:22 PM CDT): Dr. Bethea at [facility] is her Rheum. On Simponi Bronchospasm 11/06/2017 Patent foramen ovale 02/15/2017 History of bariatric surgery 11/08/2016 History of gastrointestinal disease 11/08/2016 Resolved Problems Problem Noted Date Diagnosed Date Resolved Date Cannabis dependence, episodic use 02/27/2024 03/09/2024 BMI 35.0-35.9,adult 06/04/2023 03/09/20 24 Assessment & Plan (06/04/2023 4:25 PM CDT): Discussed the patient's BMI. The BMI is above average. BMI management plan is completed. BMI Follow-up includes: nutrition counseling, exercise counseling and education provided. Obesity (BMI 30-39.9) 12/08/20212022 Assessment & Plan (12/08/2021 11:30 AM CDT): Obesity is unchanged. Discussed the patient's BMI. The BMI is above average. BMI management plan is completed. BMI Follow-up includes: nutrition counseling, exercise counseling and education provided. BMI 34.0-34.9,adult 12/08/2021 06/04/20 Assessment & Plan (12/08/2021 11:31 AM CDT): Obesity is unchanged. Discussed the patient's BMI. The BMI is above average. BMI management plan is completed. BMI Follow-up includes: nutrition counseling, exercise counseling and education provided. Diabetes mellitus screening 04/18/2020 02/21/2022 Assessment & Plan (04/18/2020 7:21 PM CDT): Check labs Other fatigue 04/18/2020 02/21/2022 Assessment & Plan (04/18/2020 7:21 PM CDT): Check labs Screening for STD (sexually transmitted disease) 04/18/2020 02/21/2022 Assessment & Plan (04/18/2020 7:21 PM CDT): Labs to check for STDs provided. No known exposure Acute maxillary sinusitis 11/06/2017 S/P percutaneous patent foramen ovale closure 02/16/20 17 02/15/2017 History of gastric bypass 01/12/2017 Abdominal pain 11/08/2016 02/21/2022 Class 1 obesity due to exces s calories without serious comorbidity with body mass index (BMI) of 34.0 to 34.9 in adult 07/06/2014 Assessment & Plan (04/18/2020 7:21 PM CDT): Obesity is unchanged. Discussed the patient's BMI. The BMI is above average. BMI management plan is completed. BMI Follow-up includes: nutrition counseling, exercise counseling and education provided. Immunizations Immunization Administration Dates Next Due DTP 11/21/1991, 9,07/23/1988,05/03,01/26/1988 Hep B, Adolescent or Pediatric 8,01/15/1998,09/17/1997,08/31 HiB 11/21/1991 Influenza, Trivalent, Preser vative Free, Intramuscular 09/21/2015 Influenza, Unspecified 05/31/2023 MMR 02/11/1993,04/25/1989 OPV 11/21/1991, 9,07/23/1988,05/03,01/26/1988 PPD TEST 12/25/2016 Td, adsorbed 01/19/2000 Tdap 01/08/2018,11/07/2017 Surgical History Surgery Date Site/Laterality Comments TONSILLECTOMY DILATION AND CURETTAGE OF UTERUS DILATION AND CURETTAGE OF UTERUS GASTRIC BYPASS SECTION SECTION CHOLECYSTECTOMY 08/21/2019 Medical History Medical History Date Comments CHF (congestive heart failure) (HCC) PFO (patent foramen ovale) HTN (hypertension) Sleep apnea Lupus Arthritis Family History Medical History Relation Name Comments Diabetes Father Diabetes mellit ; Kidney disease Father Renal disease ; Other Mother Alive and well; Hypertension Other Family history of Hypertension; Heart attack Sister 3 Myocardial infa rction; Cause of : Myocardial infarction Other Sister 4 Alive and well; Relation Name Status Comments Father Mother Alive Other Sister 1 (Age 35) Sister 2 Alive Sister 3 Sister 4 Social History Tobacco Use Types Packs/Day Years Used Date Smoking Tobacco: Every Day Cigars Started: 08/20/2016 Smokeless Tobacco: Never Tobacco Cessation:Ready to Q uit: No; Counseling Given: No Alcohol Use Standard Drinks/Week Comments Yes 7 (1 standard drink = 0.6 oz pur e alcohol) drinks 1 shot daily AUDIT-C Answer Date Recorded Frequency of Alcohol Consumption Not on file 06/04/2023 Q2: How many drinks containi ng alcohol do you have on a typical day when you are drinking? Patient does not drink Q3: How often do you have si x or more drinks on one occasion? 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9 F) 02/27/2024 1:37 PM CDT Respiratory Rate 20 12/31/2023 9:34 AM CDT Oxygen Saturation 100% 04/18/2024 9:10 AM CDT Inhaled Oxygen Concentration - - Weight 94.1 kg (207 lb 6.4 oz) 04/18/2024 9:10 A M CDT Height 157.5 cm (5' 2) 04/18/2024 9:10 AM CDT Body Mass Index 37.93 04/18/2024 9:10 AM CDT Plan of Treatment Health Maintenance Due Date Last Done Comments Varicella Vaccines (1 of 2 - 13+ 2-dose series) 11/09/2000 Pneumococcal vaccine <65 (1 of 2 - PCV) 11/09/2006 Zoster Vaccine (1 of 2) 11/09/2006 HPV Vaccines (1 - 3-dose SCD M series) 11/09/2014 Covid-19 Vaccine (2 - Pfizer risk series) 10/18/2022 09/27/2022 Regular Well Visit/Exam 18-64 06/04/2024 06/04/2023, 03/02/2020 Depression Screening 02/26/2025 02/27/2024, 06/04/2023, 12/08/2021, Additional history exists Influenza Vaccine (#1) 2025 05/31/2023, 2015 DTaP/Tdap/Td Vaccine (8 - Td or Tdap) 01/09/2028 01/08/2018, 11/07/2017, 01/19/2000, Additional history exists Cervical Cancer Screening 06/04/2028 06/04/2023 Hepatitis B Screening Completed 08/29/2023 , 02/16/1998, 01/15/1998, Additional history exists Hepatitis C Screening Completed 08/29/2023, 017 Procedures Procedure Name Priority Date/Time Associated Diagnosis Comments HEPATITIS PANEL, ACUTE Routine 08/29/2023 7:51 AM OPERATING ROOM SURGICAL TECHNOLOGIST Screening for STD (sexually transmitted disease) PAP AND HPV, REFLEX TO HPV GENOTYPES Routine 06/04/2023 5:01 PM CDT Cervical cancer screening from Last 3 Months or Most Recently Relevant to Health Maintenance Results * Hepatitis panel, acute Blood (08/29/2023 7:51 AM OPERATING ROOM SURGICAL TECHNOLOGIST) Hep A IgM Nonreactive Nonreactive [facility] Hep B core IgM Nonreactive Nonreactive [facility] Hep C Ab Nonreactive Nonreactive [facility] Comment:Antibodies to HCV no t detected. Does NOT exclude the possibility of recent exposure to HCV. Current interpretive data was last revised on 22 HepBsAg Nonreactive Nonreactive [facility] Blood 08/29/2023 7:51 AM OPERATING ROOM SURGICAL TECHNOLOGIST 08/29/2023 8:35 AM OPERATING ROOM SURGICAL TECHNOLOGIST us Luisana T[facility]Y LAB MICROBIOLOGY - GENERAL ORDERABLES Final Result [facility] Department [place] [address] * Pap and HPV, reflex to HPV Genotypes (06/04/2023 5:01 PM CDT) CLINICAL INFORMATION: [facility] Comment:Oral contraceptives LMP [facility] Comment:05/05/2023 Previous Pap [facility] Comment:PREV NEG PAP Prev. Bx [facility] Comment:None given SOURCE: [facility] Comment:Cervix, Endocervix Pap, specimen adequacy [facility] Comment: Satisfactory for evaluation. Endocervical/transformation zone component present. HPV interp [facility] Comment: Cytology Results: Negative for intraepithelial lesion or malignancy. Culture Media Laboratory Assistant [facility] Comment: YQ, CT(ASCP) CT screening location: [place] [address] Administration LAURY Treadwell [id number] [facility] Comment: EXPLANATORY NOTE: The Pap is a screening test for cervical cancer. It is not a diagnostic test and is subject to false negative and false positive results. It is most reliable when a satisfactory sample, regularly obtained, is submitted with relevant clinical findings and history, and when the Pap result is evaluated along with historic and current clinical information. EFFECTIVE JULY 16, 2023, the version of ThinPrep you ordered, commonly known as manual ThinPrep, will be DISCONTINUED. An alternative form of ThinPrep, called ThinPrep Imaging, will continue to be available. For a copy of the client communication (TIS Client Letter) showing TIS test codes, see [email or web address], and navigate to Bundle BuyWoman>Physician Materials>TIS Client Letter. You can also call for test code assistance. Human papillomavirus DNA, High Risk E6/E7 Not Detected NOT DETECTED [facility]ah[facility] Nogacom /Arsenio OTOOLE Comment: Not Detected High Risk HPV types (16,18,31,33,35,39,45,51,52, 56,58,59,66,68) were not detected. Other HPV types which cause anogenital lesions may be present. The significance of the other types of HPV in malignant processes has not been established. Methodology: Real Time PCR Thin prep 06/04/2023 5:01 PM CDT 06/06/2023 6:18 AM CDT us Luisana TONY LAB CYTOLOGY ORDERABLES Fi nal Result [facility] [address] [address] LAURY Santana [id number] Zahra Lockett/[place] [address] [facility] SYDNIE Lee [address] from Last 3 Months or Most Recently Relevant to Health Maintenance Insurance [facility] [employer] Address: [address] NATALIO Anthony [address] [employer] Address: [facility] [address] [place] [address] [employer] Address: [facility] [address] [place] [address] Care Teams Marina Dry Dock Manager Relationship Specialty Start Date End Date Luisana Sheppard PA [address] [facility] [address] [place] [address] PCP - General Internal Medicine 09/05/17
--- OUTSIDE RECORDS SUMMARY | 2025-05-19 17:33 | XMS_ITS | Encounter Summary ---
Author Organization [facility] Medical Group Address [address] [facility] [address] [place] [address] Care Team Providers Care Campaign Specialist Name Role Phone Luisana Sheppard Primary Care Provider +1- [phone] Miscellaneous, Not In File Primary Care Provider Unavailable Luisana Sheppard Primary Care Provider +1- [phone] Encounter Details Date Type Department Care Team (Late st Contact Info) Description 05/07/2010 Orders Only [facility] Provider, MD Hailey [address] [place] [address] Social History Tobacco Use Types Packs/Day Years Used Date Smoking Tobacco: Never Assessed Comments Unknown Sex and Gender Information Value Date Recorded Sex Assigned at Not on file Legal Sex Female 1:36 AM 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 Historical Provider [...] documented as of this encounter Care Teams Campaign Specialist Relationship Specialty Start Date End Date Luisana Sheppard PA [address] [place] [address] PCP - General 11/23/16 12/17/16 Miscellaneous, Not In File PCP - General 12/18/16 Luisana Sheppard PA [address] [place] [address] PCP - General Internal Medicine 09/05/17 documented as of this encounter
--- OUTSIDE RECORDS SUMMARY | 2025-05-19 17:33 | XMS_ITS | Encounter Summary ---
Author Organization [facility] Facility Care Team Providers Care Drive In Waiter/Waitress Name Role Phone Luisana Sheppard Primary Care Provider +1- [phone] Miscellaneous, Not In File Primary Care Provider Unavailable Luisana Sheppard Primary Care Provider +1- [phone] Encounter Details Date Type Department Care Team (Latest Contact Info) Description 01/19/2015 Orders Only [facility] Provider, MD Hailey [address] [place] [address] Social History Tobacco Use Types Packs/Day Years Used Date Smoking Tobacco: Never Assessed Comments Unknown Sex and Gender Information Value Date Recorded Sex Assigned at Not on file Legal Sex Female 1:36 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 us Historical Provider Final Res ult documented in this encounter Visit Diagnoses Not [...] documented as of this encounter Care Teams Drive In Waiter/Waitress Relationship Specialty Start Date End Date Luisana Sheppard PA [address] [place] [address] PCP - General 11/23/16 12/17/16 Miscellaneous, Not In File PCP - General 12/18/16 Luisana Sheppard PA [address] [place] [address] PCP - General Internal Medicine 09/05/17 documented as of this encounter
--- OUTSIDE RECORDS SUMMARY | 2025-05-19 17:33 | XMS_ITS | Encounter Summary ---
Author Organization [facility] Medical Group Address [address] [facility] [address] [place] [address] Care Team Providers Care Applications Sales Consultant Name Role Phone Luisana Sheppard Primary Care Provider +1- [phone] Miscellaneous, Not In File Primary Care Provider Unavailable Luisana Sheppard Primary Care Provider +1- [phone] Encounter Details Date Type Department Care Team (Late st Contact Info) Description 05/17/2010 Orders Only [facility] Provider, MD Hailey [address] [place] [address] Social History Tobacco Use Types Packs/Day Years Used Date Smoking Tobacco: Never Assessed Comments Unknown Sex and Gender Information Value Date Recorded Sex Assigned at Not on file Legal Sex Female 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 Historical Provider [...] documented as of this encounter Care Teams Applications Sales Consultant Relationship Specialty Start Date End Date Luisana Sheppard PA [address] [place] [address] PCP - General 11/23/16 12/17/16 Miscellaneous, Not In File PCP - General 12/18/16 Luisana Sheppard PA [address] [place] [address] PCP - General Internal Medicine 09/05/17 documented as of this encounter
--- OUTSIDE RECORDS SUMMARY | 2025-05-19 17:33 | XMS_ITS | Encounter Summary ---
Author Organization [facility] Medical Group Address [address] [facility] [address] [place] [address] Care Team Providers Care Med Surg Nurse Name Role Phone Luisana Sheppard Primary Care Provider +1- [phone] Miscellaneous, Not In File Primary Care Provider Unavailable Luisana Sheppard Primary Care Provider +1- [phone] Encounter Details Date Type Department Care Team (Late st Contact Info) Description 05/09/2010 Orders Only [facility] Provider, MD Hailey [address] [place] [address] Social History Tobacco Use Types Packs/Day Years Used Date Smoking Tobacco: Never Assessed Comments Unknown Sex and Gender Information Value Date Recorded Sex Assigned at Not on file Legal Sex Female 1:36 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 Historical Provider [...] documented as of this encounter Care Teams Med Surg Nurse Relationship Specialty Start Date End Date Luisana Sheppard PA [address] [place] [address] PCP - General 11/23/16 12/17/16 Miscellaneous, Not In File PCP - General 12/18/16 Luisana Sheppard PA [address] [place] [address] PCP - General Internal Medicine 09/05/17 documented as of this encounter
--- OUTSIDE RECORDS SUMMARY | 2025-05-19 17:33 | XMS_ITS | Encounter Summary ---
Author Organization [facility] Address [address] [place] [address] Care Team Providers Care General Supervisor Name Role Phone Luisana Sheppard Primary Care Provider +1- [phone] Miscellaneous, Not In File Primary Care Provider Unavailable Luisana Sheppard Primary Care Provider +1- [phone] Encounter Details Date Type Department Care Team (Late st Contact Info) Description 06/20/2010 Orders Only [facility] Provider, MD Hailey [address] [place] [address] Social History Tobacco Use Types Packs/Day Years Used Date Smoking Tobacco: Never Assessed Comments Unknown Sex and Gender Information Value Date Recorded Sex Assigned at Not on file Legal Sex Female 1:36 AM 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 Historical Provider [...] documented as of this encounter Care Teams General Supervisor Relationship Specialty Start Date End Date Luisana Sheppard PA [address] [place] [address] PCP - General 11/23/16 12/17/16 Miscellaneous, Not In File PCP - General 12/18/16 Luisana Sheppard PA [address] [place] [address] PCP - General Internal Medicine 09/05/17 documented as of this encounter
--- OUTSIDE RECORDS SUMMARY | 2025-05-19 17:33 | XMS_ITS | Encounter Summary ---
Author Organization [facility] Address [address] [place] [address] Care Team Providers Care Plastic Die Maker Apprentice Name Role Phone Luisana Sheppard Primary Care Provider +1- [phone] Miscellaneous, Not In File Primary Care Provider Unavailable Luisana Sheppard Primary Care Provider +1- [phone] Encounter Details Date Type Department Care Team (Late st Contact Info) Description 05/05/2010 Orders Only [facility] Provider, MD Hailey [address] [place] [address] Social History Tobacco Use Types Packs/Day Years Used Date Smoking Tobacco: Never Assessed Comments Unknown Sex and Gender Information Value Date Recorded Sex Assigned at Not on file Legal Sex Female 1:36 AM 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 Historical Provider [...] documented as of this encounter Care Teams Plastic Die Maker Apprentice Relationship Specialty Start Date End Date Luisana Sheppard PA [address] [place] [address] PCP - General 11/23/16 12/17/16 Miscellaneous, Not In File PCP - General 12/18/16 Luisana Sheppard PA [address] [place] [address] PCP - General Internal Medicine 09/05/17 documented as of this encounter
--- OUTSIDE RECORDS SUMMARY | 2025-05-19 17:34 | XMS_ITS | Clinical Summary ---
Author Organization [facility] Address [address] [facility] [place] [address] Care Team Providers Care Auto Body Repairer Name Role Phone Luisana Sheppard PA-C Primary Care Provider +1 -[phone] Source Comments [facility],non-owned Affiliates and Associated Physician Practices is amultiple site organization consisting of ambulatory clinics and hospital sitesin [place], [place], [place] and [place]. This disclosure is being madepursuant to the Care Everywhere program and may not contain all information available regarding this patient. Last updated 18.[facility] Allergies Active Allergy Reactions Criticality Noted Date Comments Cecilio Inhibitors Angioedema High 08/08/2017 Tamiflu Other 12/31/2017 STROKE LIKE SYMPTOMS Medications * This document contains information received from the source organization and may not represent a complete record from that organization. * Be aware that medications may not be up to date on this document. Alwaysverify current medications with the patient. albuterol HFA (PROVENTIL;VENT JOSE EDUARDO;PROAIR) 108 (90 BASE) MCG/ACT inhaler Inhale 2 puffs by mouth every 6 hours as needed Active gabapentin (NEURONTIN) 100 MG capsuleIndicati ons:Neuropathic Pain Take 1 (one) capsule to 3 (three) capsules by mouth at bedtime To reduce pain of carpal tunnel syndrome and improve sleep Reasons: Neuropathic Pain 90 capsule 2 Active Active Problems Patient Care Coordination No te Formatting of this note migh t be different from the original. Nopp/mfcc 12/2017 At next visit consider starting prednisone 10 mg daily Problem Noted Date Diagnosed Date Chronic pain of left knee 09/27/2021 Overview (09/27/2021): Examination symptoms seem most compatible with probable early knee osteoarthritis/degenerative joint disease. Check x-ray. Abnormal immunological findi ng in serum (positive anti SPECIAL NEEDS LIBRARIAN, anti Lia 1 antibody, anticentromere B antibody, low C3 complement but with prior negative ELVIA) 09/27/2021 Overview (09/27/2021): Uncertain regarding previous Dx l upus perhaps based upon previous laboratory test results but curious that her ELVIA was reported as negative. Check [facility] lab. Bilateral carpal tunnel syndrome 09/27/2021 Overview (09/27/2021): Current symptoms seem to suggest a longstanding carpal tunnel syndrome affecting both hands. No benefit with wrist splints. Check NCV testing. Assessment & Plan (10/27/2021 12:06 PM CLAIM REPRESENTATIVE): Start using right and left resting wrist splints as much as possible especially when sleeping at night to help with carpal tunnel syndrome symptoms. Will try to use gabapentin at bedtime to help with hand pain and improve sleep. Await [facility] schedule nerve conduction studies in November 2021 and if confirmatory of carpal tunnel syndrome then will refer to [facility] hand surgeon for likely decompressive surgical procedure. History of rheumatoid arthritis 09/27/2021 Overview (09/27/2021): I cannot identify any current findings or past laboratory results that would suggest/confirm past or active inflammatory arthritis including RA. 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 History of gastric bypass 08/08/2017 History of section 08/08/2017 History of asthma Resolved Problems Problem Noted Date Diagnosed Date Resolved Date affected by growth restriction 12/24/2017 09/27/2021 11/08/2017 09/27/2021 Asthma affecting , antepartum 08/08/2017 09/27/2021 Supervision of high risk pre gnancy, antepartum 08/08/2017 09/27/2021 36 weeks gestation of 09/27/2021 Immunizations Immunization Administration Dates Next Due TDAP (7yrs+) 01/08/2018 Family History Medical History Relation Name Comments Diabetes - Type 2 Father Hypertension Father Renal Disease Father transplant Diabetes - Type 2 Maternal Grandmother Hypertension Maternal Grandmother Hypertension Mother Relation Name Status Comments Father Maternal Grandmother Mother Social History Tobacco Use Types Packs/Day Years Used Date Smoking Tobacco: Never Smokeless Tobacco: Never Tobacco Cessation:Counseling Given: Yes Alcohol Use Standard Drinks/Week Comments Yes 0 (1 standard drink = 0.6 oz pur e alcohol) Comments No Sex and Gender Information Value Date Recorded Sex Assigned at Not on file Legal Sex Female 6:34 PM CLAIM REPRESENTATIVE Gender Identity Not on file Sexual Orientation Not on file Occupation Industry Job Start Date Job End Date unempployed Not on file Not on file Not on file Last Filed Vital Signs Vital Sign Reading Time Taken Comments Blood Pressure 110/60 10/27/2021 11:32 AM CLAIM REPRESENTATIVE Pulse 73 10/27/2021 11:32 AM CLAIM REPRESENTATIVE Temperature 36.1 C (97 F) 10/27/2021 11:32 AM CLAIM REPRESENTATIVE Respiratory Rate 16 10/27/2021 11:32 AM CLAIM REPRESENTATIVE Oxygen Saturation 100% 10/27/2021 11:32 AM CLAIM REPRESENTATIVE Inhaled Oxygen Concentration - - Weight 86.6 kg (191 lb) 10/27/2021 11:32 AM CLAIM REPRESENTATIVE Height 157.5 cm (5' 2) 10/27/2021 11:32 AM CLAIM REPRESENTATIVE Body Mass Index 34.93 10/27/2021 11:32 AM CLAIM REPRESENTATIVE Plan of Treatment Health Maintenance Due Date Last Done Comments HIV SCREENING 11/09/2002 HEPATITIS B VACCINE (1 of 3 - 19+ 3-dose series) 11/09/2006 HPV VACCINE (1 - 3-dose SCDM series) 11/09/2014 DEPRESSION SCREENING 08/20/2024 COVID-19 VACCINE ( - 2023-2 5 season) 2025 INFLUENZA VACCINE (#1) 2025 DTAP/TDAP/TD VACCINES (2 - T d or Tdap) 01/09/2028 01/08/2018 ZOSTER VACCINE (1 of 2) 11/09/2037 HEPATITIS C SCREENING Completed 11/05/2019 , 07/22/2018 HIB VACCINE Aged Out No longer eligi ble based on patient's age to complete this topic MENINGOCOCCAL (Group B) VACCINE SHARED DECISION-MAKING Aged Out No longer eligible based on patient's age to complete this topic MENINGOCOCCAL GROUPS A/C/Y/W VACCINE Aged Out No longer eligible b ased on patient's age to complete this topic PNEUMOCOCCAL VACCINE Aged Out No long er eligible based on patient's age to complete this topic Procedures Procedure Name Priority Date/Time Associated Diagnosis Comments HEPATITIS SCREEN ACUTE Routine 11/05/2019 11:20 AM CDT Seronegative rheumatoid arthritis High risk medications (not anticoagulants) long-term use from Last 3 Months or Most Recently Relevant to Health Maintenance Results * HEPATITIS SCREEN ACUTE (11/05/2019 11:20 AM CDT) Hepatitis A Virus Antibody IgM Negative Negative [facility] INSURANCE BILL Hepatitis B Virus Surface Antigen Negative Negative [facility] INSURANCE BILL Hepatitis B Core Virus Antibody IgM Negative Negative [facility] INSURANCE BILL Hepatitis C Antibody <0.1 0.0 - 0.9 s/co ratio [facility] INSURANCE BILL Comment: Negative: < 0.8 Indeterminate: 0.8 - 0.9 Positive: > 0.9 . The CDC recommends that a positive HCV antibody result be followed up with a HCV Nucleic Acid Amplification test (087908). Blood BLOOD SPECIMEN / Unknown 11/05/2019 11:20 AM CDT 11/05/2019 Narrative Resulting Agency Comment Lab Testing performed at: [email or web address] [address] [facility] [id number] Phong Major MD LAB - CHEMISTRY ORDERABLES Final Result [facility] INSURANCE BILL [address] [place] [id number] from Last 3 Months or Most Recently Relevant to Health Maintenance Insurance [facility] Advance Directives * Full Code (Latest Code Status on File) Date Activated Date Inactivated Comments 01/06/2018 6:10 PM 01/09/2018 1:07 PM * Full Code Date Activated Date Inactivated Comments 12/16/2017 4:03 AM 12/16/2017 6:38 AM * Full Code Date Activated Date Inactivated Comments 11/08/2017 7:24 AM 11/08/2017 7:57 PM * Full Code Date Activated Date Inactivated Comments 11/08/2017 5:49 AM 11/08/2017 7:24 AM Care Teams Auto Body Repairer Relationship Specialty Start Date End Date Luisana Sheppard PA-C PCP - General Physician Special Education Resource Room Teacher 12/24/17
--- OUTSIDE RECORDS SUMMARY | 2025-05-19 17:34 | XMS_ITS | Encounter Summary ---
Author Organization [facility] Address [address] [place] [address] Care Team Providers Care Linux System Administrator Name Role Phone Luisana Sheppard Primary Care Provider +1- [phone] Miscellaneous, Not In File Primary Care Provider Unavailable Luisana Sheppard Primary Care Provider +1- [phone] Encounter Details Date Type Department Care Team (Late st Contact Info) Description 11/23/2016 Orders Only [facility] ProviderHailey MD [address] [place] [address] Social History Tobacco Use Types Packs/Day Years Used Date Smoking Tobacco: Former Alcohol Use Standard Drinks/Week Comments Yes 0 (1 standard drink = 0.6 oz pur e alcohol) Comments Unknown Sex and Gender Information Value Date Recorded Sex Assigned at Not on file Legal Sex Female 1:36 AM CLINICAL DATA PROGRAMMER Gender Identity Not on file Sexual Orientation Not on file documented as of this encounter Plan of Treatment Not on file documented as of this encounter Procedures Procedure Name Priority Date/Time Associated Diagnosis Comments CARDIOLOGY REPORT 11/23/2016 documented in this encounter Results * CARDIOLOGY REPORT (11/23/2016) Anatomical Region Laterality Modality Other Narrative 11/23/2016 Ordered by an unspecified provider. Historical Provider [...] documented as of this encounter Care Teams Linux System Administrator Relationship Specialty Start Date End Date Luisana Sheppard PA [address] [place], [place] [id number] PCP - General 11/23/16 12/17/16 Miscellaneous, Not In File PCP - General 12/18/16 Luisana Sheppard PA [address] [place] [address] PCP - General Internal Medicine 09/05/17 documented as of this encounter
--- OUTSIDE RECORDS SUMMARY | 2025-05-19 17:34 | XMS_ITS | Encounter Summary ---
Author Organization [facility] Care Team Providers Care Clinical Systems Analyst Name Role Phone Luisana Sheppard Primary Care Provider +1- [phone] Miscellaneous, Not In File Primary Care Provider Unavailable Luisana Sheppard Primary Care Provider +1- [phone] Encounter Details Date Type Department Care Team (Latest Contact Info) Description 11/21/2016 Orders Only [facility] Provider, MD Hailey [address] [place] [address] Social History Tobacco Use Types Packs/Day Years Used Date Smoking Tobacco: Never Assessed Comments Unknown Sex and Gender Information Value Date Recorded Sex Assigned at Not on file Legal Sex Female 1:36 AM MANAGER COMMERCIAL Gender Identity Not on file Sexual Orientation Not on file documented as of this encounter Plan of Treatment Not on file documented as of this encounter Procedures Procedure Name Priority Date/Time Associated Diagnosis Comments SCAN - LABS 11/21/2016 12:00 AM CDT documented in this encounter Results * SCAN - LABS (11/21/2016 12:00 AM CDT) Narrative 11/21/2016 12:00 AM CDT Ordered by an unspecified [...] documented as of this encounter Care Teams Clinical Systems Analyst Relationship Specialty Start Date End Date Luisana Sheppard PA [address] [place] [address] PCP - General 11/23/16 12/17/16 Miscellaneous, Not In File PCP - General 12/18/16 Luisana Sheppard PA [address] [place] [address] PCP - General Internal Medicine 09/05/17 documented as of this encounter
--- OUTSIDE RECORDS SUMMARY | 2025-05-19 17:34 | XMS_ITS | Encounter Summary ---
Author Organization [facility] Address [address] [facility] [address] [place] [address] Care Team Providers Care Patent Engineer Name Role Phone Luisana Sheppard Primary Care Provider +1- [phone] Miscellaneous, Not In File Primary Care Provider Unavailable Luisana Sheppard Primary Care Provider +1- [phone] Encounter Details Date Type Department Care Team (Late st Contact Info) Description 11/29/2016 Orders Only [facility] Provider, MD Hailey [address] [place] [address] Social History Tobacco Use Types Packs/Day Years Used Date Smoking Tobacco: Former Alcohol Use Standard Drinks/Week Comments Yes 0 (1 standard drink = 0.6 oz pur e alcohol) Comments Unknown Sex and Gender Information Value Date Recorded Sex Assigned at Not on file Legal Sex Female 1:36 AM PLUMBING INSTALLER Gender Identity Not on file Sexual Orientation Not on file documented as of this encounter Plan of Treatment Not on file documented as of this encounter Procedures Procedure Name Priority Date/Time Associated Diagnosis Comments CARDIOLOGY REPORT 12/11/2016 12: 00 AM CDT CARDIOLOGY REPORT 11/30/2016 12: 00 AM CDT CARDIOLOGY REPORT 11/29/2016 CARDIOLOGY REPORT 11/29/2016 documented in this encounter Results * CARDIOLOGY REPORT (12/11/2016 12:00 AM CDT) Anatomical Region Laterality Modality Other Narrative 12/11/2016 12:00 AM CDT Ordered by an unspecified provider. Historical Provider [facility] CARDIAC SERVICES PROCE DURES Final Result * CARDIOLOGY REPORT (11/30/2016 12:00 AM CDT) Anatomical Region Laterality Modality Other Narrative 11/30/2016 12:00 AM CDT Ordered by an unspecified provider. [facility] Provider CV CARDIAC SERVICES PROCE DURES Final Result * CARDIOLOGY REPORT (11/29/2016) Anatomical Region Laterality Modality Other Narrative 11/29/2016 Ordered by an unspecified provider. [facility] Provider CV CARDIAC SERVICES PROCE DURES Final Result * CARDIOLOGY REPORT (11/29/2016) Anatomical Region Laterality Modality Other Narrative 11/29/2016 Ordered by an unspecified provider. [facility] Provider CV CARDIAC SERVICES PROCE DURES Final Result documented in this encounter Visit [...] documented as of this encounter Care Teams Patent Engineer Relationship Specialty Start Date End Date Luisana Sheppard PA [address] [place], [place] [id number] PCP - General 11/23/16 12/17/16 Miscellaneous, Not In File PCP - General 12/18/16 Luisana Sheppard PA [address] [place], [place] [id number] PCP - General Internal Medicine 09/05/17 documented as of this encounter
[2025-05-19 17:35] VITALS: BP 173/93; PULSE 66; RESP 16; TEMP 36.4; O2SAT 100
--- OUTSIDE RECORDS SUMMARY | 2025-05-19 17:35 | XMS_ITS | Clinical Summary ---
Author Organization [facility] Address [address] [place] [address] Phone Care Team Providers Care Production Machine Operator Name Role Phone Luisana Sheppard PAC Primary Care Provider +1- [phone] Social History Tobacco Use Types Packs/Day Years Used Date Smoking Tobacco: Never Assessed Comments Unknown Sex and Gender Information Value Date Recorded Sex Assigned at Not on file Legal Sex Female 1:46 PM CDT Gender Identity Not on file Sexual Orientation Not on file Plan of Treatment Health Maintenance Due Date Last Done Comments Hepatitis C Virus (HCV) Screening 1987 TdaP Immunization 1987 Hepatitis B Immunization (1 of 3 - 19+ 3-dose series) 11/09/2006 Pap Smear 11/09/2008 Human Papillomavirus (HPV) Immunization (1 - 3-dose SCDM series) 11/09/2014 Cervical Cancer Screening (CCS) 11/09/2017 HPV/Cotest 11/09/2017 Influenza Immunization (#1) 2025 SARS-COV-2 Immunization ( season) 2025 Respiratory Syncytial Virus (RSV) Immunization (Adult) (1 - 1-dose 75+ series) 11/09/2062 Meningococcal Immunization (ACWY) Aged Out No longer eligible based on patient's age to complete this topic Pneumococcal Immunization Combined Aged Out No longer eligible based on patient's age to complete this topic Rotavirus Immunization Aged Out No lo nger eligible based on patient's age to complete this topic Insurance MEDICAID [id number] Care Teams Production Machine Operator Relationship Specialty Start Date End Date Luisana Sheppard PAC PCP - General Physician Shingle Inspector 09/07/17
--- NOTE | 2025-05-19 17:43 | ED.EXTPRO ---
HPI - Extremity Problem General Chief complaint: Extremity Problem,Nontraumatic Stated complaint: Left leg behind knee pain Time Seen by Provider: 05/19/25 17:43 Source: patient, RN notes reviewed and old records reviewed Mode of arrival: ambulatory Limitations: no limitations History of Present Illness HPI Narrative: 39-year-old female presents to the [facility] with left posterior knee swelling. States that she has had discomfort for approximately a week and half, swelling started in the back 2 days ago. States that she was seen by occupational health at [facility] she was told to rest, ice and elevate as well as use heat. Denies injury. Related Data Home Medications ?Medication ?Instructions ?Recorded ?Confirmed ?Last Taken ?Type hydroxychloroquine 200 mg tablet 200 mg PO BID 02/20/24 05/11/24 Unknown History Allergies Allergy/AdvReac Type Severity Reaction Status Date / Time CECILIO Inhibitors Allergy Severe Swelling Verified 05/19/25 17:41 of Lip/Tongue/Throat oseltamivir (From Tamiflu) Allergy Unknown Verified 05/19/25 17:41 Review of Systems Review of Systems: All systems reviewed & are unremarkable except as noted in HPI and below Constitutional: Constitutional: Reports no additional constitutional complaints ENT: Reports system reviewed and no additional complaints, except as documented Cardiovascular: Cardiovascular: Reports no additional cardiovascular complaints, Denies chest pain and Denies dyspnea Respiratory: Respiratory: Reports no additional respiratory complaints, Denies chest congestion, Denies cough and Denies dyspnea Musculoskeletal: Musculoskeletal: Reports as per HPI Integumentary/Breasts: Skin/Breast: Reports system reviewed and no additional complaints, except as docu PMFSH Past Medical History Medical History Elevated liver enzymes (~07/2019) Right-sided congestive heart failure Echocardiogram August 2017: Mild concentric left ventricular hypertrophy, hyper trabeculation of myocardium, normal left global ventricular systolic function normal left ventricular diastolic function EF 55-60% hypokinetic basal inferior segment, mild enlargement left atrium, then hyper mobile atrial septum with [id number] shunt by color Doppler color flow consistent with PFO versus ASD, mild mitral regurg, mild tricuspid regurg, mild pulmonic regurg, trivial pericardial infusion Prior echo 2009 demonstrated right ventricle that was moderately to severely dilated with moderate systolic dysfunction prior to sleep apnea diagnosed Acute renal failure resolved Peptic ulcer Sleep apnea uses CPAP Asthma In childhood Surgical History Surgical History Gastric bypass status for obesity History of dilation and curettage February 2017 due to missed Hx of section April 17, 2010 Hx of gastric bypass [facility] 2015. Her pre up weight was 467 lb. Hx of tonsillectomy Family History Family History Sibling Acute myocardial infarction History of blood clots Sibling Diabetes mellitus Father Diabetes mellitus Hypertension Renal failure Mother Hypertension Social History Social History Social History: The patient is an employee at a [employer]. She lives with father of her children. She has 2 children. Years smoked: 3 Smoking status: Current every day smoker Tobacco type: cigars Second hand tobacco smoke exposure: Yes Additional smoking assessment comments: Smokes 4 black and mild cigars a day and smokes marijuana daily Alcohol intake: current Substance use type: marijuana Gender identity (if verbalized by the patient): Female Spiritual care concerns: No Agree to blood products: Yes Comments At the time of my signature, I reviewed and agree with the nursing past medical, surgical, social, and family history. There is no relevant family history pertinent to the patient complaint. Exam Const: General: cooperative, healthy appearing, comfortable, no acute distress, well developed, alert and well nourished Nutritional Appearance: well nourished and obese Orientation/consciousness: patient oriented x3 Limitations: no limitations HENMT: Head: normal to inspection Eyes: General: appearance normal, both eyes and all related structures Alignment and Position: alignment normal Neck: Neck: normal visual inspection, full ROM, no lymphadenopathy and no meningeal signs Chest: Chest palpation & inspection: normal inspection of the chest Resp: Effort & Inspection: normal respiratory effort and able to speak in complete sentences Cardio: Rate: regular rate Skin: General skin exam: normal color and no rashes or lesions noted Neuro: General: patient oriented x3, gait normal, moves all extremities and no meningeal signs Cognition (Neuro): normal cognition Speech: normal speech Gait exam (Neuro): Normal gait present Extrem: General: normal to inspection, full ROM, capillary refill normal and normal gait Right lower extremity: full ROM and knee Details: swelling (Posterior), normal ROM and other (Swelling posterior knee, Solo cyst) Psych: Appearance: grossly normal and well kempt Mental Status: mental status grossly normal Speech and movement: Normal speech and movement present and Clear speech present Affect: normal affect Attitude: cooperative Course Course Level of Care: Express Care Visit Vital Signs Vital signs: Vital Signs Temperature 97.5 F L 05/19/25 17:35 Pulse Rate 66 05/19/25 17:35 Respiratory Rate 16 05/19/25 17:35 Blood Pressure 173/93 H 05/19/25 17:35 Pulse Oximetry 100 05/19/25 17:35 Oxygen Delivery Room Air 05/19/25 17:35 Temperature 97.5 F L 05/19/25 17:35 Pulse Rate 66 05/19/25 17:35 Respiratory Rate 16 05/19/25 17:35 Blood Pressure 173/93 H 05/19/25 17:35 Pulse Oximetry 100 05/19/25 17:35 Oxygen Delivery Room Air 05/19/25 17:35 Reviewed MDM - Extremity (Nontraumatic) MDM Narrative Medical decision making narrative: Patient sitting in exam room. Patient is nontoxic, vitals stable except blood pressure is elevated. Discussed no trauma to the knee. Exam most consistent with a Solo cyst. Discussed conservative treatment, phone number for Orthopedics given. Patient reports that she has seen Occupational Health at [facility] for the same complaint. Discussed doing an x-ray which she declined at this time Discharge instructions reviewed with patient, as well as provided in writing per nursing staff. The instructions also include specific and strict return/GO TO THE ER as well as f/u information. All questions have been answered, and the patient deny any further questions with discharge and discharge plan. Some parts of this dictation were generated by voice recognition software and may contain typographical and/or grammatical inaccuracies. Differential Diagnosis Differential diagnosis: Likely other (Arthritis, solo cyst) Critical Care Time Critical Care Time Critical Care Time: No Discharge Plan Discharge Clinical Impression: Solo cyst Patient Disposition: Home Condition: Stable Instructions: Solo Cyst (ED), P.R.I.C.E. Treatment (ED) Additional Instructions: Today your blood pressure was 173/93. Please follow-up with your primary care provider within the next 1-2 weeks to have this rechecked. Untreated or undertreated blood pressure can lead to more serious health issues Continue to rest, ice and elevate continue wearing an Cecilio wrap Follow-up with your primary care provider Patient Language: Bolivian Prescriptions: No Action hydroxychloroquine 200 mg tablet 200 mg PO BID Follow-up/Referrals: Silver,CECILY Lieberman [Primary Care Provider, Unknown] Gene Sutton MD [Physician, Orthopedics] - 1 Week Clinical Impression: Solo cyst Stand Alone Forms: Work/School Release IP Time of Disposition: 17:50
== END 2025-05-19 17:57 | disposition home or self-care (01) ==
PROVIDERS: Emergency Provider Nurse Practitioner; PCP Physician Assistant
DX: M71.22 Synovial cyst of popliteal space [Baker], left knee (principal); I50.9 Heart failure, unspecified; G47.30 Sleep apnea, unspecified; E66.9 Obesity, unspecified; Z98.84 Bariatric surgery status; Z68.42 Body mass index [BMI] 45.0-49.9, adult
CPT/HCPCS: 99211; G0463